=== PATIENT | female | born 1975 | race Caucasian/White ===

== ENCOUNTER 2016-06-03 15:40 | Emergency (ER) | payer SELFPAY ==
[~2016-06-03] VITALS: Ht 162.6 cm; Wt 63.8 kg
[~2016-06-03 15:40] MED LIST: ACET-2222 PO; ACET-789 PO; ACET325T38 PO; ALPR.5T; ALPR.5T PO; CEPH500C PO; CIPR500T78 PO; CLIN300C3 PO; FNT100TD; FNT25TD; GBPN100C PO; HYDR-34 PO; HYDR-3714 PO; HYDR1TAB PO; IBUP-1773 PO; IBUP800T26 PO; KETO-22 PO; LIDO20SO20 PO; LORTAB PO; METO10TA3 PO; METR500T PO; NF-ESOM40C PO; ONDA8TAB13 PO; ONDAN4ODT PO; OXYC-109; OXYC1CAP3 PO; PHEN-639 PO; PHEN100T17 PO; PNT40TEC PO; PREG50C; PRM25T PO; SULF1TAB7 PO; TRAM-21; TRAM50TA2 PO; TRAZADONE PO; TRM50T PO; Ultram; VARE1TAB19; Zantac; [UNRECOGNIZED DRUG - CODE]
--- OUTSIDE RECORDS SUMMARY | 2016-06-03 15:45 | XMS REPORT | Continuity of Care Document ---
Author Author [facility] Organization [facility] Address Unknown Phone Unavailable Care Team Providers Care System Software Developer Name Role Phone NO, LOCAL PHYSICIAN PCP Unavailable Advance Directives Directive Response Recorded Date/Time Advance Directives No 11/28/13 11:05am Health Care Power of District Court Judge No 11/28/13 11:05am Organ Donor Yes 11/28/13 11:05am Resuscitation Status Full Code 11/28/13 11:05am Problems Medical Problems Problem Onset Date Status Nausea and vomiting Unknown Active abdominal pain secondary to number one Unknown Active trichomonas urinary tract infection Unknown Active Urinary tract infection Unknown Active Medications Medication Dose Route Sig Days/Qty Instructions Order Date Discontinued Date Status Fentanyl 08/23/06 01/22/09 Discontinued Alprazolam 08/23/06 01/22/09 Discontinued Hydrocodone Bitartrate/Ibuprofen 08/23/06 01/22/09 Discontinued Pregabalin 01/22/09 03/25/09 Discontinued Tramadol Hcl 01/22/09 03/25/09 Discontinued Varenicline Tartrate 01/22/09 03/25/09 Discontinued Fentanyl 03/25/09 12/12/10 Discontinued Oxycodone Hcl/Acetaminophen 03/25/09 12/12/10 Discontinued Promethazine HCl 1 Tab PO EVERY 6 HOURS 20 Qty 03/25/09 12/12/10 Discontinued Alprazolam 1 Tab PO TWICE A DAY 12/12/10 07/25/11 Discontinued [Trazadone] 100 Mg PO BEDTIME 12/12/10 07/25/11 Discontinued Oxycodone Hcl/Acetaminophen 1 Each PO Q 6 H PRN PAIN 20 Qty 12/12/10 01/19/11 Discontinued Gabapentin 100 Mg PO THREE TIMES A DAY 30 Qty 12/12/10 01/19/11 Discontinued [Zantac] 07/25/11 11/03/11 Discontinued [Ultram] 07/25/11 11/03/11 Discontinued Pantoprazole Sodium 1 Tab PO DAILY 30 Qty 07/25/11 12/21/11 Discontinued Ketorolac Tromethamine 10 Mg PO EVERY 6 HOURS PRN 15 Qty FOR PAIN 12/21/11 Discontinued Tramadol HCl 50 Mg PO Q4-6HOURS PRN 20 Qty 07/25/11 06/01/13 Discontinued Ondansetron HCl 4 Mg PO EVERY 4HRS 10 Qty FOR NAUSEA AND VOMITING 12/21/11 Discontinued [Lortab 5/500] 1 - 2 Tab PO EVERY 4HRS NEEDED FOR PAIN 07/27/11 Discontinued Esomeprazole Magnesium 1 Cap PO DAILY 30 Days 07/27/11 11/03/11 Discontinued Acetaminophen/Hydrocodone Bitart 1 - 2 Each PO Q4HR PRN 10 Qty 12/21/11 Discontinued Acetaminophen With Codeine 1 Each PO EVERY 4HRS PRN 6 Qty 12/21/11 Discontinued Metronidazole 1 Each PO TWICE A DAY 20 Qty 06/01/13 11/28/13 Discontinued Acetaminophen/Hydrocodone Bitart ([place]) 1-2 Each PO EVERY 6 HOURS PRN PAIN 20 Qty 06/01/13 11/28/13 Discontinued Ondansetron 8 Mg PO EVERY 6 HOURS PRN NAUSEA/VOMITING 10 Qty 06/01/13 11/28/13 Discontinued Ibuprofen (Motrin) 800 Mg PO q8h PRN PAIN 30 Qty 06/01/13 11/28/13 Discontinued Trimethoprim/Sulfamethoxazole 1 Ea PO TWICE A DAY 11/28/13 Active Ciprofloxacin HCl 500 Mg PO TWICE A DAY 14 Qty 11/28/13 Active Acetaminophen/Hydrocodone Bitart 1-2 Each PO Q6HR PRN PRN PAIN 14 Qty 11/28/13 Active Phenazopyridine HCl 1 Each PO TID PRN 10 Qty 11/28/13 Active Social History Social History Problem Response Recorded Date/Time Alcohol Use Denies Use 11/28/2013 11:05am Recreational Drug Use No 11/28/2013 11:05am Recent Foreign Travel No 11/28/2013 11:05am Recent Infectious Disease Exposure No 11/28/2013 11:05am Smoking Status Current Everyday Smoker 11/28/2013 11:05am Query Response Start Date Stop Date Smoking Status Current Everyday Smoker Hospital Discharge Instructions No hospital discharge instructions. Plan of Care No plan of care. Functional Status No functional status results. Allergies, Adverse Reactions, Alerts Allergen Type Severity Reaction Status Last Updated Penicillins ([id number]) Allergy Unknown Active 06/15/05 pregabalin ([id number]) Allergy Severe EDEMA Active 12/21/11 Immunizations No immunization records. Vital Signs Acute Vital Signs Vital Response Date/Time Temperature (Fahrenheit) 97.3 degrees F (97.6 - 99.5) Temperature (Calculated Celsius) 36.35752 degrees C (36.4 - 37.5) Pulse Rate (adult) 70 bpm (60 - 90) Respiratory Rate 18 bpm (12 - 24) O2 Sat by Pulse Oximetry 98 % (88 - 100) Blood Pressure 98/50 mm Hg Pain Pain Intensity 3 Height (Feet) 5 feet Height (Inches) 4 inches Height (Calculated Centimeters) 162.276374 cm Weight (Pounds) 120 pounds Weight (Calculated Kilograms) 54.917226 kilograms Calculated BMI 20.60 Results Test Source Date Result Interp. Ref. Range Comments Acetaminophen Level July 27, 2008 11:15pm < 10 UG/ML L 10.0-30.0 Acetaminophen Screen July 25, 2011 5:00pm NEGATIVE - APAP= ACETAMINOPHEN/PARACETAMOL Activated Partial Thromboplast Time June 18, 2005 7:05am 30 SEC N 24- 35 Alanine Aminotransferase (ALT/SGPT) June 01, 2013 6:15pm 54 U/L N 30 -65 Albumin June 01, 2013 6:15pm 4.0 G/DL N 3.4-5.0 Alkaline Phosphatase June 01, 2013 6:15pm 87 U/L N 50-136 Amphetamines Screen June 16, 2005 5:00pm Negative - Has specimen been collected/obtained? Y Amylase Level June 01, 2013 6:15pm 40 U/L N 25-115 Aspartate Amino Transf (AST/SGOT) June 01, 2013 6:15pm 25 U/L N 15- 37 BUN/Creatinine Ratio June 01, 2013 6:15pm 14 - Band Neutrophils July 25, 2011 3:45pm 0 % - Basophils # (Auto) June 01, 2013 6:15pm 0.1 10^3/uL N 0.0-0.1 Basophils % (Manual) July 25, 2011 3:45pm 0 % - Basophils (%) (Auto) June 01, 2013 6:15pm 1 % N 0-10 Blood Urea Nitrogen June 01, 2013 6:15pm 11 MG/DL N 7-18 C-Reactive Protein June 01, 2013 6:15pm < 0.2 MG/DL L 0.2-0.9 Calcium Level June 01, 2013 6:15pm 9.4 MG/DL N 8.5-10.1 Carbon Dioxide Level June 01, 2013 6:15pm 24 MMOL/L N 21-32 Chloride Level June 01, 2013 6:15pm 100 MMOL/L L 101-110 Cocaine Screen June 16, 2005 5:00pm Negative - Has specimen been collected/obtained? Y Creatinine June 01, 2013 6:15pm 0.8 MG/DL N 0.6-1.3 Direct Bilirubin July 02, 2005 9:05am 0.2 MG/DL N 0.0-0.30 Comments to [facility]: [facility] Eosinophils # (Auto) June 01, 2013 6:15pm 0.0 10^3/uL N 0.0-0.3 Eosinophils % (Manual) July 25, 2011 3:45pm 0 % - Eosinophils (%) (Auto) June 01, 2013 6:15pm 0 % N 0-10 Erythrocyte Sedimentation Rate April 20, 2012 10:25pm 1 MM/HR N 0-20 Glucose Level June 01, 2013 6:15pm 128 MG/DL H 74-106 Hematocrit June 01, 2013 6:15pm 43 % N 35-52 Hemoglobin June 01, 2013 6:15pm 15.4 G/DL N 11.5-16.0 Hepatitis A Antibody Total July 01, 2005 11:55am See report - HEPATITIS C GENOTYPE- 3ML PLASMA FROZEN Hepatitis B Surface Antigen June 15, 2005 5:19pm See report - Hepatitis C Antibody June 16, 2005 6:41am See report - Hepatitis C RNA (DNA PCR) July 01, 2005 11:55am See report - HEPATITIS C GENOTYPE- 3ML PLASMA FROZEN Hepatitis C RNA (PCR) IUs/ml July 01, 2005 11:55am See report - HEPATITIS C GENOTYPE- 3ML PLASMA FROZEN Indirect Bilirubin July 02, 2005 9:05am 0.2 MG/DL - Comments to [facility]: [facility] Lipase June 01, 2013 6:15pm 114 U/L N 73-393 Lymphocytes # (Auto) June 01, 2013 6:15pm 3.2 X 10^3 N 1.0-4.0 Lymphocytes % (Manual) July 25, 2011 3:45pm 9 % - Lymphocytes (%) (Auto) June 01, 2013 6:15pm 31 % N 12-44 Magnesium Level April 20, 2012 10:25pm 1.4 MG/DL L 1.8-2.4 Marijuana (THC) Screen June 16, 2005 5:00pm Positive - Has specimen been collected/obtained? Y Mean Corpuscular Hemoglobin June 01, 2013 6:15pm 31 PG N 25-34 Mean Corpuscular Hemoglobin Concent June 01, 2013 6:15pm 36 G/DL N 32-36 Mean Corpuscular Volume June 01, 2013 6:15pm 87 FL N 80-99 Mean Platelet Volume June 01, 2013 6:15pm 9.1 FL N 7.4-10.4 Miscellaneous Test July 01, 2005 11:55am Hep c genotype - HEPATITIS C GENOTYPE- 3ML PLASMA FROZEN Miscellaneous Test Result July 01, 2005 11:55am See report - HEPATITIS C GENOTYPE- 3ML PLASMA FROZEN Monocytes # (Auto) June 01, 2013 6:15pm 0.5 X 10^3 N 0.0-1.0 Monocytes % (Manual) July 25, 2011 3:45pm 0 % - Monocytes (%) (Auto) June 01, 2013 6:15pm 5 % N 0-12 Neutrophils # (Auto) June 01, 2013 6:15pm 6.7 X 10^3 N 1.8-7.8 Neutrophils % (Manual) July 25, 2011 3:45pm 91 % - Neutrophils (%) (Auto) June 01, 2013 6:15pm 64 % N 42-75 Opiates Screen June 16, 2005 5:00pm Positive - Has specimen been collected/obtained? Y Platelet Count June 01, 2013 6:15pm 387 10^3/uL N 130-400 Potassium Level June 01, 2013 6:15pm 3.3 MMOL/L L 3.6-5.0 Prothromb Time International Ratio June 18, 2005 7:05am 1.1 N 0.8-1.4 INTERPRETIVE DATASUGGESTED THERAPEUTIC RANGE FOR INR'S: VENOUS THROMBOSIS, PULMONARY EMBOLISM, OR PREVENTION OF SYSTEMIC EMBOLISM (EG. IN ATRIAL FIBRILLATION): 2.0 - 3.0 MECHANICAL PROSTHETIC HEART VALVES: 2.5 - 3.5* *NOTE: INR'S UP TO 4.5 MAY BE NECESSARY IN SELECTED GROUPS OF HIGH RISK PATIENTS. [employer] CONSENSUS CONFERENCE ON ANTITHROMBOTIC THERAPY (2000). Prothrombin Time June 18, 2005 7:05am 14.6 SEC N 12.2-14.7 Red Blood Count June 01, 2013 6:15pm 4.98 10^6/uL N 4.35-5.85 Red Cell Distribution Width June 01, 2013 6:15pm 12.5 % N 10.0-14.5 Reference Lab Test Result July 01, 2005 11:55am See report - HEPATITIS C GENOTYPE- 3ML PLASMA FROZEN Salicylates Level July 27, 2008 11:15pm 4.2 MG/DL N 2.8-20.0 Serum Test, Qualitative July 27, 2008 11:15pm NEGATIVE - Sodium Level June 01, 2013 6:15pm 134 MMOL/L L 135-145 TSH [place] Testing April 20, 2012 10:25pm 0.56 UIU/ML N 0.34-5.60 Total Bilirubin June 01, 2013 6:15pm 0.8 MG/DL N 0.0-1.0 Total Creatine Kinase April 20, 2012 10:25pm 64 U/L N 1-159 Total Protein June 01, 2013 6:15pm 7.1 G/DL N 6.4-8.2 Tricyclic Antidepressants Screen June 16, 2005 5:00pm Negative - Has specimen been collected/obtained? Y Troponin I July 25, 2011 6:00pm < 0.10 NG/ML 0.00-0.10 Ur Tricyclic Antidepressants Screen April 20, 2012 11:05pm NEGATIVE - Urine Amorphous Sediment April 20, 2012 11:05pm MOD CYNTHIA PHOSPHATE /LPF H - Has specimen been collected/obtained? YSpecimen Description CLEAN CATCH Urine Amphetamines Screen April 20, 2012 11:05pm POSITIVE H - Urine Bacteria November 28, 2013 10:30am FEW /HPF H - Has specimen been collected/obtained? YSpecimen Description CLEAN CATCH Urine Barbiturates Screen April 20, 2012 11:05pm NEGATIVE - Urine Benzodiazepines Screen April 20, 2012 11:05pm POSITIVE H - Urine Bilirubin November 28, 2013 10:30am NEGATIVE - Has specimen been collected/obtained? YSpecimen Description CLEAN CATCH Urine Casts November 28, 2013 10:30am NONE /LPF - Has specimen been collected/obtained? YSpecimen Description CLEAN CATCH Urine Clarity November 28, 2013 10:30am SLIGHTLY CLOUDY - Has specimen been collected/obtained? YSpecimen Description CLEAN CATCH Urine Cocaine Screen April 20, 2012 11:05pm NEGATIVE - Urine Color November 28, 2013 10:30am YELLOW - Has specimen been collected/obtained? YSpecimen Description CLEAN CATCH Urine Crystals November 28, 2013 10:30am NONE /LPF - Has specimen been collected/obtained? YSpecimen Description CLEAN CATCH Urine Culture Indicated November 28, 2013 10:30am YES - Has specimen been collected/obtained? YSpecimen Description CLEAN CATCH Urine Glucose (UA) November 28, 2013 10:30am NEGATIVE - Has specimen been collected/obtained? YSpecimen Description CLEAN CATCH Urine HCG, Qualitative January 10, 2007 2:29am Negative - Has specimen been collected/obtained? Y Urine Ketones November 28, 2013 10:30am 1+ H - Has specimen been collected/obtained? YSpecimen Description CLEAN CATCH Urine Leukocyte Esterase November 28, 2013 10:30am 3+ H - Has specimen been collected/obtained? YSpecimen Description CLEAN CATCH Urine Methamphetamines Screen April 20, 2012 11:05pm POSITIVE H - Urine Mucus November 28, 2013 10:30am MODERATE /LPF H - Has specimen been collected/obtained? YSpecimen Description CLEAN CATCH Urine Nitrate January 10, 2007 3:30am Negative - Specimen Description CLEAN CATCH Urine Nitrite November 28, 2013 10:30am NEGATIVE - Has specimen been collected/obtained? YSpecimen Description CLEAN CATCH Urine Opiates Screen April 20, 2012 11:05pm POSITIVE H - Urine Phencyclidine Screen April 20, 2012 11:05pm NEGATIVE - Urine Test July 26, 2011 9:06am NEGATIVE - Urine Propoxyphene Screen April 20, 2012 11:05pm NEGATIVE - Urine Protein November 28, 2013 10:30am 2+ H - Has specimen been collected/obtained? YSpecimen Description CLEAN CATCH Urine RBC November 28, 2013 10:30am 10-25 /HPF H - Has specimen been collected/obtained? YSpecimen Description CLEAN CATCH Urine Specific [place] November 28, 2013 10:30am 1.025 H - Has specimen been collected/obtained? YSpecimen Description CLEAN CATCH Urine Squamous Epithelial Cells November 28, 2013 10:30am 5-10 /HPF - Has specimen been collected/obtained? YSpecimen Description CLEAN CATCH Urine Trichomonas June 01, 2013 6:20pm LARGE /HPF H - Has specimen been collected/obtained? YSpecimen Description CLEAN CATCH Urine Urobilinogen November 28, 2013 10:30am 8 MG/DL H - Has specimen been collected/obtained? YSpecimen Description CLEAN CATCH Urine WBC November 28, 2013 10:30am >100 /HPF H - Has specimen been collected/obtained? YSpecimen Description CLEAN CATCH Urine pH November 28, 2013 10:30am 6 - Has specimen been collected/ obtained? YSpecimen Description CLEAN CATCH White Blood Count June 01, 2013 6:15pm 10.5 10^3/uL N 4.3-11.0 Barbiturate Screen June 16, 2005 5:00pm Negative - Has specimen been collected/obtained? Y Serum Alcohol April 20, 2012 10:25pm < 5 MG/DL -5 Lab Scanned Report July 21, 2011 5:20pm LAB Reports [id number] - Estimat Glomerular Filtration Rate June 01, 2013 6:15pm > 60 - GFR INTERPRETIVE DATA UNITS FOR ESTIMATED GFR (eGFR): mL/min/1.73 M2 REFERENCE RANGE FOR ESTIMATED GFR (eGFR) eGFR NORMAL eGFR >60 MODERATELY DECREASED eGFR 30-59 SEVERLY DECREASED eGFR 15-29 KIDNEY FAILURE <15 (OR DIALYSIS) Urine Oxycodone Screen April 20, 2012 11:05pm NEGATIVE - Blood Morphology Comment July 25, 2011 3:45pm NORMAL - Urine Methadone Screen April 20, 2012 11:05pm NEGATIVE - Urine Cannabinoids Screen April 20, 2012 11:05pm NEGATIVE - Urine Buprenorphine April 20, 2012 11:05pm NEGATIVE - Urine RBC (Auto) November 28, 2013 10:30am 4+ H - Has specimen been collected/obtained? YSpecimen Description CLEAN CATCH Blood Culture Peripheral-Lt Ac August 23, 2006 8:55pm No growth MRSA Screen Nasal July 26, 2011 8:45am MRSA not isolated Urine Culture Urine-Clean Catch June 01, 2013 6:20pm Procedures No known history of procedures. Encounters Encounter Location Date/Time Departed Emergency Room [facility] 11/28/13 10:27am Recent Diagnosis
--- NOTE | 2016-06-03 16:06 | ED Integumentary General ---
General Chief Complaint: Skin/Wound Problems Stated Complaint: L SIDE BUTTOCK ABSCESS Source: patient Exam Limitations: no limitations History of Present Illness Time seen by provider: 16:06 Initial Comments To ER with a tender abscess to the left buttocks since yesterday. States she does not have a history of this. No fevers chills malaise or nausea Timing/Duration: yesterday Severity: moderate Associated Symptoms: No fever Allergies and Home Medications Allergies Coded Allergies: pregabalin (Verified Allergy, Severe, EDEMA, 12/21/11) Penicillins (Verified Allergy, Unknown, 06/15/05) Home Medications Acetaminophen 325 Mg Tablet 500 MG PO NEEDED (Reported) Cephalexin 500 Mg Capsule #21 500 MG PO TID Prescribed by: TODD DAILY on 12/21/15 1228 Ibuprofen 600 Mg Tablet 600 MG PO Q6H (Reported) Lidocaine Hcl 20 Ml Soln #1 20 ML PO UD Prescribed by: SUZANNE TRAN on 07/21/14 0736 Phenazopyridine HCl 100 Mg Tablet #14 100 MG PO Q8H PRN PRN PAIN Prescribed by: TODD DAILY on 12/21/15 1228 Tramadol HCl 50 Mg Tablet #14 50 MG PO Q4H PRN PRN PAIN Prescribed by: TODD DAILY on 12/21/15 1228 Constitutional: see HPINo chills, No fever EENTM: see HPI Respiratory: no symptoms reported Cardiovascular: no symptoms reported Genitourinary: no symptoms reported Musculoskeletal: no symptoms reported Skin: see HPI Psychiatric/Neurological: No Symptoms Reported Past [id number]-Vuxhue Hx Patient Social History Recent Foreign Travel: No Contact w/Someone Who Travel: No Recent Hopitalizations: Yes (BACK PAIN) Seasonal Allergies Seasonal Allergies: No Surgeries HX Surgeries: No Surgeries: Tubal Ligation Respiratory Hx Respiratory Disorders: No Cardiovascular Hx Cardiac Disorders: No Neurological Hx Neurological Disorders: No Reproductive System Hx Reproductive Disorders: No 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 Genitourinary Hx Genitourinary Disorders: Yes Genitourinary Disorders: Bladder Infection Gastrointestinal Hx Gastrointestinal Disorders: Yes (HEP C) Gastrointestinal Disorders: Hepatitis Musculoskeletal Hx Musculoskeletal Disorders: No Endocrine Hx Endocrine Disorders: No HEENT HX ENT Disorders: No Psychosocial Hx Psychiatric Problems: No Integumentary HX Skin/Integumentary Disorder: No Blood Transfusions Hx Blood Disorders: No Family Medical History Significant Family History: No Pertinent Family Hx Physical Exam Vital Signs Vital Sign - Last 12Hours 06/03/16 16:05 Temp 98.1 Pulse 95 Resp 16 B/P 138/76 Pulse Ox 99 Capillary Refill : General Appearance: WD/WN no apparent distress HEENT: PERRL/EOMI normal ENT inspection Neck: full range of motion Neurologic/Psychiatric: alert normal mood/affect oriented x 3 Skin: normal color warm/dry Skin Problem Location: other (there is a visible area of erythema about 1 cm in diameter to the superior left buttocks. Surrounding this there is another 1- 2 cm of induration with minimal fluctuance. Exam and I and D done with RICARDO Mena at the bedside as well as patient's daughter.) Skin Problem Character: abscess I&D : Blade Size: 11 Progress Area anesthetized with 1 percent lidocaine with epinephrine after cleaning with chlorhexidine swab. A T-shaped incision was made over the area of maximum fluctuance using an 11 blade scalpel. Purulent material was expressed. Culture collected and sent to lab. Wound was covered with gauze. Wound was probed with the blunt end of a sterile Q-tip. Not deep enough to pack. Progress/Results/Core Measures Results/Orders My Orders Orders-TOREY DEL VALLE APRN Lidocaine/Epi 1% 1:100,000 (Xylocaine /E (06/03/16 16:15) Sulfamethoxazole/Trimet Ds Tab (Bactrim (06/03/16 16:15) Wound Culture (06/03/16 16:15) Medications Given in ED Current Medications Medications Dose Ordered Sig/Dick Route Start Time Stop Time Status Last Admin Dose Admin Lidocaine/ Epinephrine 2 ml ONCE ONCE INJ 06/03/16 16:15 06/03/16 16:16 06/03/16 16:10 2 ML Trimethoprim/ Sulfamethoxazole 1 ea ONCE ONCE PO 06/03/16 16:15 06/03/16 16:16 06/03/16 16:11 1 EA Vital Signs/I&O Vital Sign - Last 12Hours 06/03/16 16:05 Temp 98.1 Pulse 95 Resp 16 B/P 138/76 Pulse Ox 99 Departure Impression Impression: Primary Impression: Abscess Disposition: 01 HOME, SELF-CARE Condition: Stable Departure-Patient Inst. Decision time for Depature: 16:18 Referrals: NO,LOCAL PHYSICIAN (PCP/Family) Primary Care Physician Patient Instructions: Abscess Incision and Drainage (DC) Add. Discharge Instructions: 1. Return to ER for any concerns 2. Warm compresses to this area a few times a day 3. Antibiotics as directed 4. Tylenol and Motrin for pain All discharge instructions reviewed with patient and/or family. Voiced understanding. Scripts Tramadol HCl (Ultram)50 Mg [id number] Mg PO Q6H PRN PAIN #10 TAB Prov:TOREY DEL VALLE APRN 06/03/16 Sulfamethoxazole/Trimethoprim (Bactrim Ds Tablet)1 Each Tablet1 Each PO BID #14 TAB Prov:TOREY DEL VALLE APRN 06/03/16 TOREY DEL VALLE APRN Jun 03, 2016 16:06
[2016-06-03] MEDS ORDERED: LIDOCAINE/EPI 1%-1:100,000 (XYLOCAINE) 20ML INJ ONE (16:15)
[2016-06-03] MEDS ORDERED: TRIM/SULFAMETH 160/800 (SEPTRA DS) TAB PO ONE (16:15)
[2016-06-03] MEDS ORDERED: SULF1TAB35 PO (16:18)
[2016-06-03] MEDS ORDERED: TRAM-42 PO (16:19)
[2016-06-03 16:20] VITALS: BP 138/76
== END 2016-06-03 16:20 | disposition home or self-care (01) ==
LOC: EDUNIT# 15:40 → ER 15:41
DX: L02.31 Cutaneous abscess of buttock (principal)
CPT/HCPCS: 10060; 87070; 87077; 87186; 87205

== ENCOUNTER 2016-10-23 05:35 | Emergency (ER) | payer SELFPAY ==
[~2016-10-23] VITALS: Ht 162.6 cm; Wt 52.5 kg
[~2016-10-23 05:35] MED LIST changes: +SULF1TAB35 PO; +TRAM-42 PO
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
[2016-10-23] MEDS ORDERED: KETOROLAC 60 MG/2 ML VIAL IM STA (05:51)
[2016-10-23] MEDS ORDERED: ORPHENADRINE 60 MG/2 ML (NORFLEX) AMP IM STA (05:51)
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
--- NOTE | 2016-10-23 07:26 | Diagnostic Imaging Report ---
PROCEDURE: CT lumbar spine without contrast. TECHNIQUE: Multiple contiguous axial images were obtained through the lumbar spine without the use of intravenous contrast. Sagittal and coronal reformations were then performed. INDICATION: Fall. Back pain. COMPARISON: 01/19/2011 FINDINGS: There are acute nondisplaced fractures of the right transverse processes of L1-L2. No other acute appearing osseous abnormalities are identified. Vertebral body heights are maintained. No compression fractures are seen. Static alignment is preserved. There is no significant anterolisthesis or retrolisthesis. There is no evidence of jumped facets. No significant degenerative changes are identified. Pre-and paravertebral soft tissue structures are unremarkable. IMPRESSION: 1. Acute nondisplaced fractures of the right transverse processes of L1 and L2. Dictated by: Dictated on workstation # [id number]
[2016-10-23] MEDS ORDERED: Flexeril (07:40)
[2016-10-23] MEDS ORDERED: HYDR-756 PO (07:40)
[2016-10-23 07:53] VITALS: BP 104/76
== END 2016-10-23 07:53 | disposition home or self-care (01) ==
LOC: EDUNIT# 05:35 → ER 05:38
DX: S32.018A Other fracture of first lumbar vertebra, initial encounter for closed fracture (principal); S32.028A Other fracture of second lumbar vertebra, initial encounter for closed fracture; F17.210 Nicotine dependence, cigarettes, uncomplicated; W01.10XA Fall on same level from slipping, tripping and stumbling with subsequent striking against unspecified object, initial encounter; Y99.8 Other external cause status
CPT/HCPCS: 72131; 96372; 99284

== ENCOUNTER 2018-04-29 01:58 | Emergency (ER) | payer SELFPAY ==
[~2018-04-29] VITALS: Ht 162.6 cm; Wt 56.7 kg
[~2018-04-29 01:58] MED LIST changes: +Flexeril; +HYDR-4227 PO
[2018-04-29] MEDS ORDERED: RX-TRAMADOL 50 MG (ULTRAM) TAB PPK#4 PO STA (02:18)
[2018-04-29] MEDS ORDERED: AMOXICILLIN 500 MG (POLYMOX) CAP PO ONE (02:30)
[2018-04-29] MEDS ORDERED: LIDOCAINE 2% VISCOUS 15 ML UDC PO ONE (02:30)
[2018-04-29] MEDS ORDERED: AMOX500T2 PO (02:49)
[2018-04-29] MEDS ORDERED: TRAM-42 PO (02:49)
--- NOTE | 2018-04-29 02:49 | ED EENT ---
History of Present Illness General Chief Complaint: Dental Problems/Pain Stated Complaint: DENTAL PAIN Nursing Triage Note: DENTAL PAIN Source: patient Exam Limitations: no limitations History of Present Illness Date Seen by Provider: Apr 29, 2018 Time Seen by Provider: 02:10 Initial Comments This 42-year-old woman presents to the emergency room with complaints of bilateral dental pain due to multiple severely eroded molars. She has a dental appointment pending for May 18. She denies any fevers. She is taking Tylenol and Advil with insufficient relief. She is also taking topical anesthetics states they upset her stomach. Allergies and Home Medications Allergies Coded Allergies: pregabalin (Verified Allergy, Severe, EDEMA, 12/21/11) Penicillins (Verified Allergy, Unknown, 04/29/18) Can take amoxicillin without reaction Home Medications Amoxicillin 500 Mg Tablet, 1,000 MG PO BID Prescribed by: MARISOL COHN on 04/29/18 0249 Tramadol HCl 50 Mg Tablet, 50 MG PO Q6H PRN for PAIN-MODERATE TO SEVERE Prescribed by: MARISOL COHN on 04/29/18 0249 Patient Home Medication List Home Medication List Reviewed: Yes Review of Systems Review of Systems Constitutional: no symptoms reported Eyes: No Symptoms Reported Ears: No Symptoms Reported Nose: no symptoms reported Mouth: see HPI Throat: no symptoms reported Respiratory: no symptoms reported Cardiovascular: no symptoms reported Gastrointestinal: no symptoms reported : No Musculoskeletal: no symptoms reported Skin: no symptoms reported Neurological: No Symptoms Reported Hematologic/Lymphatic: No Symptoms Reported Immunological/Allergic: no symptoms reported Past Zrmpszv-Eggrkn-Xlvagk Hx Past Med/Social Hx: Reviewed and Corrections made Patient Social History Alcohol Use: Denies Use Recreational Drug Use: No Smoking Status: Current Everyday Smoker Type Used: Cigarettes 2nd Hand Smoke Exposure: No Recent Foreign Travel: No Contact w/Someone Who Travel: No Recent Infectious Disease Expo: No Recent Hopitalizations: No Immunizations Up To Date Tetanus Booster (TDap): Unknown Seasonal Allergies Seasonal Allergies: No Past Medical History Surgeries: Yes Section, Tubal Ligation Respiratory: No Cardiac: No Neurological: No : No Reproductive Disorders: No 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 0oz. 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 Patient was warned not to fall sleep with gauze pads in her mouth. A take-home packet of Ultram was provided. Her first dose of amoxicillin was given. Patient stated she has a historical penicillin allergy but she knows from experience she can take amoxicillin without reaction. Departure Impression Primary Impression: Pain, dental Additional Impression: Dental decay Disposition: 01 HOME, SELF-CARE Condition: Improved Departure-Patient Inst. Decision time for Depature: 02:44 Referrals: NO,LOCAL PHYSICIAN (PCP/Family) Primary Care Physician Patient Instructions: Dental Pain (DC) Add. Discharge Instructions: Follow-up with your dentist as soon as possible for extractions. Complete your antibiotics as prescribed. You may use anesthetic gauze pads to blanket the areas of pain. Do NOT fall sleep with gauze pads in your mouth as that would create choking risk. Eat and drink with caution after using gauze pads as they may numb your mouth, tongue, and throat. For primary pain control you may use ibuprofen up to 600 mg every 6 hours as needed and/or Tylenol (acetaminophen) up to 1000 mg every 6 hours. Use Ultram ( tramadol) for pain not controlled by [id number] medications. Return to care if you worsening symptoms despite these measures. All discharge instructions reviewed with patient and/or family. Voiced understanding. Scripts Tramadol HCl (Ultram) 50 Mg Tablet 50 MG PO Q6H PRN for PAIN-MODERATE TO SEVERE, #20 TAB Prov: MARISOL PULIDO MD 04/29/18 Amoxicillin (Amoxicillin) 500 Mg Tablet 1000 MG PO BID, #40 TAB Prov: MARISOL PULIDO MD 04/29/18 MARISOL PULIDO MD Apr 29, 2018 02:48
[2018-04-29 02:55] VITALS: BP 122/91
== END 2018-04-29 02:53 | disposition home or self-care (01) ==
LOC: EDUNIT# 01:58 → ER 02:02
DX: K02.9 Dental caries, unspecified (principal); B19.20 Unspecified viral hepatitis C without hepatic coma; F17.210 Nicotine dependence, cigarettes, uncomplicated; Z98.890 Other specified postprocedural states; Z87.19 Personal history of other diseases of the digestive system; Z98.51 Tubal ligation status; Z87.448 Personal history of other diseases of urinary system; Z88.0 Allergy status to penicillin; Z88.8 Allergy status to other drugs, medicaments and biological substances
CPT/HCPCS: 99283

== ENCOUNTER 2018-10-27 23:58 | Emergency (ER) | payer SELFPAY, OTHER | END 2018-10-28 01:03 | disposition home or self-care (01) | LOC: ER 23:58 ==

== ENCOUNTER 2019-07-14 12:31 | Emergency (ER) | payer SELFPAY ==
[~2019-07-14] VITALS: Ht 162.6 cm; Wt 56.0 kg
[~2019-07-14 12:31] MED LIST changes: +AMOX500T2 PO; +METH4TAB PO; -TRAM50TA2 PO
[2019-07-14 12:35] VITALS: BP 117/85
[2019-07-14] MEDS ORDERED: HYDROcodone/APAP 5 MG/325 MG (LORTAB) TAB PO ONE (13:15)
[2019-07-14] MEDS ORDERED: predniSONE 20 MG TAB PO ONE (13:15)
--- NOTE | 2019-07-14 13:31 | ED Upper Extremity ---
General Chief Complaint: Orthopedic Problems Stated Complaint: SHOULDER PAIN Nursing Triage Note: Pt amb to triage with c/o L shoulder et R foot discomfort. Pt reports she took 1000mg tylenol on this day at 0500. Pt denies injury reporting hx degenerative disk disease. Nursing Sepsis Screen: No Definite Risk Source: patient Exam Limitations: no limitations History of Present Illness Date Seen by Provider: Jul 14, 2019 Time Seen by Provider: 13:00 Initial Comments 44-year-old female who presents to the emergency room with complaints of left shoulder pain. She has chronic degenerative disc disease and it affects her left shoulder from time to time she also complains of right foot discomfort that starts in the arch of her foot. She denies any injury to the foot. Denies taking any pain medication for this. She reports that she's delt with this and she was 14 years old. Pain/Injury Location: left shoulder Allergies and Home Medications Allergies Coded Allergies: pregabalin (Verified Allergy, Severe, EDEMA, 12/21/11) Penicillins (Verified Allergy, Unknown, 04/29/18) Can take amoxicillin without reaction Home Medications Amoxicillin 500 Mg Tablet, 1,000 MG PO BID Prescribed by: MARISOL COHN on 04/29/18 0249 Methylprednisolone 4 Mg Tab.ds.pk, 4 MG PO UD Prescribed by: NATASHA WEEMS on 10/28/18 0044 Prednisone 50 Mg Tab, 50 MG PO DAILY Prescribed by: PAULINA MORRISSEY on 07/14/19 1355 Tramadol HCl 50 Mg Tablet, 50 MG PO Q6H PRN for PAIN-MODERATE TO SEVERE Prescribed by: MARISOL COHN on 04/29/18 0249 Patient Home Medication List Home Medication List Reviewed: Yes Review of Systems Constitutional: see HPI; No chills, No fever Past Winznxm-Dkyrwi-Wttydv Hx Patient Social History Alcohol Use: Denies Use Recreational Drug Use: No (smoke) 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; OPIATES, BENZODIAZEPINES, THC Smoking Status: Current Everyday Smoker Type Used: Cigarettes 2nd Hand Smoke Exposure: No Recent Foreign Travel: No Contact w/Someone Who Travel: No Recent Infectious Disease Expo: No Recent Hopitalizations: No Immunizations Up To Date Tetanus Booster (TDap): Less than 5yrs PED Vaccines UTD: Yes Seasonal Allergies Seasonal Allergies: No Past Medical History Surgeries: Yes ( X 1) Section, Gallbladder, Tubal Ligation Respiratory: No Cardiac: No Neurological: No Reproductive Disorders: No 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 PT WITH HX OF POLYSUBSTANCE ABUSE, INCLUDING IV METH, WELL RX DRUG ABUSE--OPIATES AND BENZODIAZEPINES Physical Exam Vital Signs Vital Signs - First Documented 07/14/19 12:35 Temp 37.0 Pulse 96 Resp 17 B/P (MAP) 117/85 (96) Pulse Ox 99 O2 Delivery Room Air Capillary Refill : Less Than 3 Seconds Height, Weight, BMI Height: 5'4" Weight: 125lbs. 0oz. [id number]; 21.00 BMI Method:Stated General Appearance: WD/WN, no apparent distress Cardiovascular: normal peripheral pulses, regular rate, rhythm, no edema, no gallop, no JVD, no murmur Respiratory: chest non-tender, lungs clear, normal breath sounds, no respi ratory distress, no accessory muscle use Gastrointestinal: normal bowel sounds, non tender, soft, no organomegaly, no pulsatile mass, abnormal bowel sounds Shoulder: normal inspection, non-tender, no evidence of injury, normal ROM Neurologic/Psychiatric: alert, normal mood/affect, oriented x 3 Skin: normal color, warm/dry Progress/Results/Core Measures Results/Orders My Orders Orders - PAULINA MORRISSEY Hydrocodone/Apap 5/325 Tablet (Lortab 5 (07/14/19 13:15) Prednisone Tablet (Deltasone Tablet) (07/14/19 13:15) Shoulder, Left, 3 Views (07/14/19 13:06) Medications Given in ED Current Medications Medications Dose Ordered Sig/Dick Route Start Time Stop Time Status Last Admin Dose Admin Acetaminophen/ Hydrocodone Bitart 1 tab ONCE ONCE PO 07/14/19 13:15 07/14/19 13:16 DC 07/14/19 13:13 1 TAB Prednisone 50 mg ONCE ONCE PO 07/14/19 13:15 07/14/19 13:16 DC 07/14/19 13:13 50 MG Vital Signs/I&O 07/14/19 12:35 Temp 37.0 Pulse 96 Resp 17 B/P (MAP) 117/85 (96) Pulse Ox 99 O2 Delivery Room Air Blood Pressure Mean: 96 Departure Impression Primary Impression: Chronic shoulder pain Additional Impression: Plantar fasciitis Disposition: HOME, SELF-CARE Condition: Stable/Unchanged Departure-Patient Inst. Decision time for Depature: 13:53 Referrals: NO,LOCAL PHYSICIAN (PCP/Family) Primary Care Physician Patient Instructions: Chronic Pain (DC), Heel Pain (Caused by Plantar Fasciitis) (DC), Plantar Fasciitis Exercises Add. Discharge Instructions: Take medication as directed. You may use ice and heat to the sore areas. Tylenol and ibuprofen as directed by the packaging for pain relief. Call today to a primary care provider. Return back to the emergency room for worsening symptoms or concerns as needed. All discharge instructions reviewed with patient and/or family. Voiced understanding. Scripts Prednisone (Prednisone) 50 Mg Tab 50 MG PO DAILY for 5 Days, #5 TAB Prov: PAULINA MORRISSEY 07/14/19 PAULINA MORRISSEY Jul 14, 2019 13:30
--- NOTE | 2019-07-14 13:45 | Diagnostic Imaging Report ---
INDICATION: Shoulder pain COMPARISON: None. FINDINGS: 3 views of the left shoulder were obtained. There is no fracture, dislocation, or other acute bony abnormality identified. The soft tissues appear unremarkable. No radiopaque foreign bodies identified. The visualized portions of the left lung are clear. IMPRESSION: No acute fractures or dislocations of the left shoulder. Dictated by: Dictated on workstation # [id number]
[2019-07-14] MEDS ORDERED: PRD50T PO (13:55)
== END 2019-07-14 13:50 | disposition home or self-care (01) ==
LOC: EDUNIT# 12:31 → ER 12:33
DX: M25.512 Pain in left shoulder (principal); M72.2 Plantar fascial fibromatosis; F17.210 Nicotine dependence, cigarettes, uncomplicated
CPT/HCPCS: 73030; 99282

== ENCOUNTER 2020-01-04 10:40 | Emergency (ER) | payer SELFPAY ==
[~2020-01-04] VITALS: Ht 162.6 cm; Wt 58.9 kg
[~2020-01-04 10:40] MED LIST changes: +PRD50T PO
[2020-01-04 11:22] LABS: BASOPHILS # (AUTO) 0.1 10^3/uL (0.0-0.1); BASOPHILS % (AUTO) 1 % (0-10); EOSINOPHILS % (AUTO) 0 % (0-10); HEMATOCRIT 45 % (35-52); HEMOGLOBIN 15.1 g/dL (11.5-16.0); LYMPHOCYTES # (AUTO) 2.5 10^3/uL (1.0-4.0); LYMPHOCYTES % (AUTO) 25 % (12-44); MEAN CORPUSCULAR HEMOGLOBIN 31 pg (25-34); MEAN CORPUSCULAR HGB CONC 34 g/dL (32-36); MEAN CORPUSCULAR VOLUME 90 fL (80-99); MEAN PLATELET VOLUME 8.6 fL (9.0-12.2); MONOCYTES # (AUTO) 0.3 10^3/uL (0.0-1.0); MONOCYTES % (AUTO) 3 % (0-12); NEUTROPHILS # (AUTO) 7.2 10^3/uL (1.8-7.8); NEUTROPHILS % (AUTO) 72 % (42-75); PLATELET COUNT 432 10^3/uL (130-400); WHITE BLOOD COUNT 10.1 10^3/uL (4.3-11.0)
[2020-01-04 11:26] LABS: CLARITY,URINE CLEAR; COLOR,URINE YELLOW; GLUCOSE, URINE (UA) NEGATIVE (NEGATIVE); KETONES,URINE 3+ (NEGATIVE); LEUKOCYTE ESTERASE ,URINE NEGATIVE (NEGATIVE); NITRITE,URINE NEGATIVE (NEGATIVE); PH,URINE 7.5 (5-9); PROTEIN,URINE 1+ (NEGATIVE)
[2020-01-04] MEDS ORDERED: NS IV 1000 ML 1,000 ML IV SCH ×2 (11:29→12:10)
[2020-01-04] MEDS ORDERED: fentaNYL INJECTION 100 MCG/2 ML AMP IVP ONE ×2 (11:30→14:30)
[2020-01-04] MEDS ORDERED: ONDANSETRON 4 MG/2 ML (SDV) Z0FRAN IVP ONE (11:30)
[2020-01-04 11:32] LABS: ALBUMIN 4.7 GM/DL (3.2-4.5); CHLORIDE 103 MMOL/L (98-107); POTASSIUM 3.6 MMOL/L (3.6-5.0); SODIUM 139 MMOL/L (135-145)
[2020-01-04 11:34] LABS: GLUCOSE 105 MG/DL (70-105)
[2020-01-04 11:35] LABS: TOTAL PROTEIN 7.7 GM/DL (6.4-8.2)
[2020-01-04 11:36] LABS: BILIRUBIN,TOTAL 1.4 MG/DL (0.1-1.0); CARBON DIOXIDE 19 MMOL/L (21-32)
[2020-01-04 11:38] LABS: ALKALINE PHOSPHATASE 82 U/L (40-136); CREATININE SERUM 0.72 MG/DL (0.60-1.30); GFR ESTIMATED > 60
[2020-01-04 11:38] LABS: BACTERIA,URINE FEW /HPF; RBC,URINE RARE /HPF; SQUAMOUS EPITHELIAL CELL,UR 25-50 /HPF; WBC,URINE 0-2 /HPF
[2020-01-04 11:39] LABS: BUN/CREATININE RATIO 21
[2020-01-04 11:41] LABS: ALANINE AMINOTRANSFERASE 48 U/L (0-55)
[2020-01-04 11:42] LABS: AMPHETAMINE SCREEN, URINE POSITIVE (NEGATIVE); BARBITURATE SCREEN URINE NEGATIVE (NEGATIVE); BENZODIAZEPINES SCREEN URINE POSITIVE (NEGATIVE); BILIRUBIN,URINE 2+ (NEGATIVE); CANNABINOID SCREEN, URINE POSITIVE (NEGATIVE); COCAINE SCREEN URINE NEGATIVE (NEGATIVE); METHADONE STAT NEGATIVE (NEGATIVE); METHAMPHETAMINE SCREEN URINE S POSITIVE (NEGATIVE); OPIATE SCREEN URINE POSITIVE (NEGATIVE); OXYCODONE STAT NEGATIVE (NEGATIVE); PROPOXYPHENE STAT NEGATIVE (NEGATIVE); TRICYCLIC ANTIDEPRESSANTS SCRE NEGATIVE (NEGATIVE)
[2020-01-04 11:45] LABS: AMYLASE 50 U/L (25-125)
--- NOTE | 2020-01-04 11:47 | ED GI ---
General Chief Complaint: Abdominal/GI Problems Stated Complaint: ABD PAIN;VOMITING Nursing Triage Note: PT TO ROOM 07 VIA W/C WITH C/O ABD PAIN, N/V/D THIS THIS MORNING. PT REPORTS TAKING A 10/325 HYDROCODONE FOR THE PAIN AT 0700 WITHOUT RELIEF. PT TEARFUL UPON ARRIVAL AND RAISED THE SIDE RAILS X2 ON THE BED ON HER OWN. Sepsis Screen: No Definite Risk History of Present Illness Date Seen by Provider: Jan 04, 2020 Time Seen by Provider: 11:10 Initial Comments 44 year old female presents with epigastric abdominal that started at 0700, multiple episodes of vomiting and a few episodes of diarrhea. Reports using marijuana most days, denies any other drug use. The hydrocodone at 0700 with no improvement in her symptoms. She does report a history of using Xanax but denies using it over the last 90 days. She goes to [facility] and is prescribed Prozac there. She does not have a primary care provider. History of cholecystectomy and tubal ligation, no other abdominal surgeries. Timing/Duration: 4-6 Hours Severity/Quality: Moderate Location: Epigastric Radiation: No Radiation Associated Symptoms: No Back Pain, No Chest Pain, No Fever/Chills, No Heartburn; Nausea/Vomiting; No Swelling/Mass in Abdomen Allergies and Home Medications Allergies Coded Allergies: pregabalin (Verified Allergy, Severe, EDEMA, 12/21/11) Penicillins (Verified Allergy, Unknown, 04/29/18) Can take amoxicillin without reaction Home Medications Amoxicillin 500 Mg Tablet, 1,000 MG PO BID Prescribed by: MARISOL COHN on 04/29/18 0249 Cephalexin 500 Mg Tablet, 500 MG PO TID Prescribed by: RUBY SILVA on 01/04/20 1228 Methylprednisolone 4 Mg Tab.ds.pk, 4 MG PO UD Prescribed by: NATASHA WEEMS on 10/28/18 0044 Ondansetron 4 Mg Tab.rapdis, 4 MG PO Q6H PRN for NAUSEA/VOMITING Prescribed by: RUBY SILVA on 01/04/20 1228 Prednisone 50 Mg Tab, 50 MG PO DAILY Prescribed by: PAULINA MORRISSEY on 07/14/19 1355 Tramadol HCl 50 Mg Tablet, 50 MG PO Q6H PRN for PAIN-MODERATE TO SEVERE Prescribed by: MARISOL COHN on 04/29/18 0249 Patient Home Medication List Home Medication List Reviewed: Yes Review of Systems Review of Systems Constitutional: no symptoms reported, see HPI Gastrointestinal: See HPI, Abdominal Pain (epigastric), Diarrhea, Nausea, Poor Appetite, Vomiting All Other Systems Reviewed Negative Unless Noted: Yes Past Svpdfqd-Xnyath-Jqnkzm Hx Past Med/Social Hx: Reviewed Nursing Past Med/Soc Hx Patient Social History Alcohol Use: Denies Use Recreational Drug Use: Yes (smoke) 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; OPIATES, BENZODIAZEPINES, THC Smoking Status: Current Everyday Smoker Type Used: Cigarettes 2nd Hand Smoke Exposure: No Recent Foreign Travel: No Contact w/Someone Who Travel: No Recent Infectious Disease Expo: No Recent Hopitalizations: No Physical Abuse: No Sexual Abuse: No Mistreated: No Fear: No Immunizations Up To Date Tetanus Booster (TDap): Less than 5yrs PED Vaccines UTD: Yes Seasonal Allergies Seasonal Allergies: No Past Medical History Surgeries: Yes ( X 1) Section, Gallbladder, Tubal Ligation Respiratory: No Cardiac: No Neurological: No 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 PT WITH HX OF POLYSUBSTANCE ABUSE, INCLUDING IV METH, WELL RX DRUG ABUSE--OPIATES AND BENZODIAZEPINES Physical Exam Vital Signs Vital Signs - First Documented 01/04/20 01/04/20 10:58 14:32 Temp 35.8 Pulse 62 Resp 17 B/P (MAP) 151/91 (111) Pulse Ox 99 O2 Delivery Room Air Capillary Refill : Less Than 3 Seconds Height/Weight/BMI Height: 5'4" Weight: 125lbs. 0oz. 56.001720xt; 22.00 BMI Method:Stated General Appearance: WD/WN, mild distress (secondary to pain) HEENT: PERRL/EOMI, normal ENT inspection, TMs normal, pharynx normal Respiratory: chest non-tender, lungs clear, normal breath sounds Cardiovascular: normal peripheral pulses, regular rate, rhythm, no edema Gastrointestinal: normal bowel sounds, soft; No distended, No guarding, No rebound; tenderness (epigastric) Neurologic/Psychiatric: no motor/sensory deficits, alert, normal mood/affect, oriented x 3 Skin: normal color, warm/dry; No jaundice Progress/Results/Core Measures Results/Orders Lab Results Laboratory Tests Test 01/04/20 11:13 01/04/20 11:16 01/04/20 11:20 Range/Units White Blood Count 10.1 4.3-11.0 10^3/uL Red Blood Count 4.94 3.80-5.11 10^6/uL Hemoglobin 15.1 11.5-16.0 g/dL Hematocrit 45 35-52 % Mean Corpuscular Volume 90 80-99 fL Mean Corpuscular Hemoglobin 31 25-34 pg Mean Corpuscular Hemoglobin Concent 34 32-36 g/dL Red Cell Distribution Width 12.4 10.0-14.5 % Platelet Count 432 H 130-400 10^3/uL Mean Platelet Volume 8.6 L 9.0-12.2 fL Immature Granulocyte % (Auto) 0 % Neutrophils (%) (Auto) 72 42-75 % Lymphocytes (%) (Auto) 25 12-44 % Monocytes (%) (Auto) 3 0-12 % Eosinophils (%) (Auto) 0 0-10 % Basophils (%) (Auto) 1 0-10 % Neutrophils # (Auto) 7.2 1.8-7.8 10^3/uL Lymphocytes # (Auto) 2.5 1.0-4.0 10^3/uL Monocytes # (Auto) 0.3 0.0-1.0 10^3/uL Eosinophils # (Auto) 0.0 0.0-0.3 10^3/uL Basophils # (Auto) 0.1 0.0-0.1 10^3/uL Immature Granulocyte # (Auto) 0.0 0.0-0.1 10^3/uL Sodium Level 139 135-145 MMOL/L Potassium Level 3.6 3.6-5.0 MMOL/L Chloride Level 103 98-107 MMOL/L Carbon Dioxide Level 19 L 21-32 MMOL/L Anion Gap 17 H 5-14 MMOL/L Blood Urea Nitrogen 15 7-18 MG/DL Creatinine 0.72 0.60-1.30 MG/DL Estimat Glomerular Filtration Rate > 60 BUN/Creatinine Ratio 21 Glucose Level 105 70-105 MG/DL Calcium Level 10.0 8.5-10.1 MG/DL Corrected Calcium 8.5-10.1 MG/DL Total Bilirubin 1.4 H 0.1-1.0 MG/DL Aspartate Amino Transf (AST/SGOT) 45 H 5-34 U/L Alanine Aminotransferase (ALT/SGPT) 48 0-55 U/L Alkaline Phosphatase 82 40-136 U/L C-Reactive Protein High Sensitivity < 0.01 0.00-0.50 MG/DL Total Protein 7.7 6.4-8.2 GM/DL Albumin 4.7 H 3.2-4.5 GM/DL Amylase Level 50 25-125 U/L Lipase 12 8-78 U/L Urine Color YELLOW Urine Clarity CLEAR Urine pH 7.5 5-9 Urine Specific [place] 1.020 1.016-1.022 Urine Protein 1+ H NEGATIVE Urine Glucose (UA) NEGATIVE NEGATIVE Urine Ketones 3+ H NEGATIVE Urine Nitrite NEGATIVE NEGATIVE Urine Bilirubin 2+ H NEGATIVE Urine Urobilinogen 2.0 < = 1.0 MG/DL Urine Leukocyte Esterase NEGATIVE NEGATIVE Urine RBC (Auto) NEGATIVE NEGATIVE Urine RBC RARE /HPF Urine WBC 0-2 /HPF Urine Squamous Epithelial Cells 25-50 H /HPF Urine Crystals NONE /LPF Urine Bacteria FEW H /HPF Urine Casts NONE /LPF Urine Mucus MODERATE H /LPF Urine Culture Indicated NO Urine Opiates Screen POSITIVE H NEGATIVE Urine Oxycodone Screen NEGATIVE NEGATIVE Urine Methadone Screen NEGATIVE NEGATIVE Urine Propoxyphene Screen NEGATIVE NEGATIVE Urine Barbiturates Screen NEGATIVE NEGATIVE Ur Tricyclic Antidepressants Screen NEGATIVE NEGATIVE Urine Phencyclidine Screen NEGATIVE NEGATIVE Urine Amphetamines Screen POSITIVE H NEGATIVE Urine Methamphetamines Screen POSITIVE H NEGATIVE Urine Benzodiazepines Screen POSITIVE H NEGATIVE Urine Cocaine Screen NEGATIVE NEGATIVE Urine Cannabinoids Screen POSITIVE H NEGATIVE Urine Test NEGATIVE NEGATIVE My Orders Orders - RUBY SILVA Hcg,Qualitative Urine (01/04/20 11:25) Ondansetron Injection (Zofran Injectio (01/04/20 11:30) Ed Iv/Invasive Line Start (01/04/20 11:29) Ns Iv 1000 Ml (Sodium Chloride 0.9%) (01/04/20 11:29) Fentanyl Injection (Sublimaze Injection (01/04/20 11:30) Amylase (01/04/20 11:31) Lipase (01/04/20 11:31) Ed Iv/Invasive Line Start (01/04/20 12:10) Ns Iv 1000 Ml (Sodium Chloride 0.9%) (01/04/20 12:10) Ketorolac Injection (Toradol Injection) (01/04/20 12:10) Ceftriaxone For Iv Use (Rocephin For I (01/04/20 12:30) Haloperidol Tablet (Haldol Tablet) (01/04/20 13:15) Diphenhydramine Tablet (Benadryl Tablet) (01/04/20 13:15) Fentanyl Injection (Sublimaze Injection (01/04/20 14:30) Medications Given in ED Current Medications Medications Dose Ordered Sig/Dick Route Start Time Stop Time Status Last Admin Dose Admin Ceftriaxone Sodium 1000 mg/ Sterile Water 10 ml @ 200 mls/hr ONCE ONCE IV 01/04/20 12:30 01/04/20 12:32 DC 01/04/20 12:26 200 MLS/HR Diphenhydramine HCl 25 mg ONCE ONCE PO 01/04/20 13:15 01/04/20 13:16 DC 01/04/20 13:57 25 MG Fentanyl Citrate 25 mcg ONCE ONCE IVP 01/04/20 11:30 01/04/20 11:31 DC 01/04/20 11:36 25 MCG Fentanyl Citrate 25 mcg ONCE ONCE IVP 01/04/20 14:30 01/04/20 14:31 DC 01/04/20 14:28 25 MCG Haloperidol 5 mg ONCE ONCE PO 01/04/20 13:15 01/04/20 13:16 DC 01/04/20 13:57 5 MG Ondansetron HCl 4 mg ONCE ONCE IVP 01/04/20 11:30 01/04/20 11:31 DC 01/04/20 11:36 4 MG Vital Signs/I&O 01/04/20 01/04/20 10:58 14:32 Temp 35.8 Pulse 62 85 Resp 17 19 B/P (MAP) 151/91 (111) 127/69 Pulse Ox 99 O2 Delivery Room Air Room Air Blood Pressure Mean: 111 Progress Progress Note : Time: 11:10 Progress Note Patient seen and evaluated, will obtain labs, IV Zofran 4 mg, fentanyl 25 g and normal saline 1 L. 1200 patient reports pain improved for approximately 15 minutes and is now severe. Will give Toradol 30 mg IV and a second liter of IV fluids. Rocephin 1 g IV for UTI. Discussed urine drug screen, patient denies using benzodiazepines or methamphetamine. 1230 patient continues to complain of pain. Discussed UTI and she said this is the pain she gets when they are bad. 1300 2nd liter of NS. Haldol and Benadryl for pain/nausea. 1345 patient reports some improvement in her symptoms. Discharge instructions and return precautions reviewed with her. Departure Impression Primary Impression: Urinary tract infection Qualified Codes: N30.01 - Acute cystitis with hematuria Additional Impressions: Nausea and vomiting Qualified Codes: R11.2 - Nausea with vomiting, unspecified Abdominal wall pain Disposition: HOME, SELF-CARE Condition: Improved Departure-Patient Inst. Decision time for Depature: 13:40 Referrals: NO,LOCAL PHYSICIAN (PCP/Family) Primary Care Physician Patient Instructions: Severe Abdominal Pain, Adult (DC), Urinary Tract Infection, Adult (DC) Add. Discharge Instructions: Increase water intake, 16 ounces every 2 hours while awake. Empty bladder every 2 hours. Drink 1 cup of cranberry juice or eat 1 cup of fresh blueberries daily, Take antibiotics as prescribed. Use Zofran every 6-8 hours for nausea and vomiting. Alternate between Tylenol 650 mg and ibuprofen 600 mg every 4 hours for pain. Establish care with a primary care provider. Return to the emergency department for new, urgent health care needs. All discharge instructions reviewed with patient and/or family. Voiced understanding. Scripts Cephalexin (Cephalexin) 500 Mg Tablet 500 MG PO TID, #15 TAB 0 Refills Prov: RUBY SILVA 01/04/20 Ondansetron (Ondansetron Odt) 4 Mg Tab.rapdis 4 MG PO Q6H PRN for NAUSEA/VOMITING, #12 TAB 0 Refills Prov: RUBY SILVA 01/04/20 RUBY SILVA Jan 04, 2020 11:47
[2020-01-04 11:53] LABS: LIPASE 12 U/L (8-78)
[2020-01-04] MEDS ORDERED: KETOROLAC 30 MG/ML VIAL IVP STA (12:10)
[2020-01-04] MEDS ORDERED: CEPH500T PO (12:28)
[2020-01-04] MEDS ORDERED: ONDA4TAB11 PO (12:28)
[2020-01-04] MEDS ORDERED: cefTRIAXone FOR IV USE 1,000 MG in WATER (STERILE) FOR INJECTION 10 ML IV ONE (12:30)
[2020-01-04] MEDS ORDERED: diphenhydrAMINE 25 MG TAB (BENADRYL) PO ONE (13:15)
[2020-01-04] MEDS ORDERED: HALOPERIDOL 5 MG (HALDOL) TAB PO ONE (13:15)
[2020-01-04 14:32] VITALS: BP 127/69
== END 2020-01-04 14:32 | disposition home or self-care (01) ==
LOC: EDUNIT# 10:40 → ER 10:41
DX: N39.0 Urinary tract infection, site not specified (principal); G89.29 Other chronic pain; M54.9 Dorsalgia, unspecified; F17.210 Nicotine dependence, cigarettes, uncomplicated; Z88.8 Allergy status to other drugs, medicaments and biological substances; Z88.0 Allergy status to penicillin; Z79.52 Long term (current) use of systemic steroids
CPT/HCPCS: 36415; 80053; 80306; 81000; 82150; 83690; 84703; 85025; 86141

== ENCOUNTER 2020-05-07 15:36 | Emergency (ER) | payer SELFPAY ==
[~2020-05-07] VITALS: Ht 162.6 cm; Wt 63.6 kg
[~2020-05-07 15:36] MED LIST changes: +CEPH500T PO; +ONDA4TAB11 PO
--- NOTE | 2020-05-07 15:50 | ED General ---
General Stated Complaint: CHEST SWOLLEN/PAINFUL History of Present Illness Date Seen by Provider: May 07, 2020 Time Seen by Provider: 15:50 Initial Comments 45-year-old female presents with left chest wall pain. She reports that started about 3 days ago. That her anterior chest wall is "swollen" that is tender to palpation, hurts with any physical activity, hurts with deep breath. She denies any known injury or increased activity. She denies any cough, fever, chills, shortness of breath, diaphoresis. Allergies and Home Medications Allergies Coded Allergies: pregabalin (Verified Allergy, Severe, EDEMA, 12/21/11) Penicillins (Verified Allergy, Unknown, 04/29/18) Can take amoxicillin without reaction Home Medications Amoxicillin 500 Mg Tablet, 1,000 MG PO BID Prescribed by: MARISOL COHN on 04/29/18 0249 Cephalexin 500 Mg Tablet, 500 MG PO TID Prescribed by: RUBY SILVA on 01/04/20 1228 Meloxicam, Submicronized 5 Mg Capsule, 5 MG PO DAILY Prescribed by: JUANY LION on 05/07/20 1654 Methylprednisolone 4 Mg Tab.ds.pk, 4 MG PO UD Prescribed by: NATASHA WEEMS on 10/28/18 0044 Ondansetron 4 Mg Tab.rapdis, 4 MG PO Q6H PRN for NAUSEA/VOMITING Prescribed by: RUBY SILVA on 01/04/20 1228 Prednisone 50 Mg Tab, 50 MG PO DAILY Prescribed by: PAULINA MORRISSEY on 07/14/19 1355 Tramadol HCl 50 Mg Tablet, 50 MG PO Q6H PRN for PAIN-MODERATE TO SEVERE Prescribed by: MARISOL COHN on 04/29/18 0249 Patient Home Medication List Home Medication List Reviewed: Yes Review of Systems Review of Systems Constitutional: No chills, No fever EENTM: no symptoms reported Respiratory: No cough, No short of breath Cardiovascular: see HPI, chest pain; No palpitations Gastrointestinal: no symptoms reported Genitourinary: no symptoms reported Musculoskeletal: see HPI Skin: see HPI Psychiatric/Neurological: No Symptoms Reported Hematologic/Lymphatic: No Symptoms Reported Immunological/Allergic: no symptoms reported Past Rhynhut-Aohnkh-Yogzcl Hx Past Med/Social Hx: Reviewed Nursing Past Med/Soc Hx Patient Social History 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; OPIATES, BENZODIAZEPINES, THC Type Used: Cigarettes 2nd Hand Smoke Exposure: No Recent Hopitalizations: No Immunizations Up To Date Tetanus Booster (TDap): Less than 5yrs PED Vaccines UTD: Yes Seasonal Allergies Seasonal Allergies: No Past Medical History Surgeries: Yes ( X 1) Section, Gallbladder, Tubal Ligation Respiratory: No Cardiac: No Neurological: No 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 PT WITH HX OF POLYSUBSTANCE ABUSE, INCLUDING IV METH, WELL RX DRUG ABUSE--OPIATES AND BENZODIAZEPINES Physical Exam Vital Signs Vital Signs - First Documented Capillary Refill : Height, Weight, BMI Height: 5'4" Weight: 125lbs. 0oz. 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 as Tested Skin: Normal Color, Warm/Dry Progress/Results/Core Measures Suspected Sepsis SIRS Temperature: Pulse: Respiratory Rate: Laboratory Tests 05/07/20 16:02: White Blood Count 7.5 Blood Pressure / Mean: Laboratory Tests 05/07/20 16:02: Creatinine 0.75, Platelet Count 319, Total Bilirubin 0.5 Results/Orders Lab Results Laboratory Tests Test 05/07/20 16:02 Range/Units White Blood Count 7.5 4.3-11.0 10^3/uL Red Blood Count 4.31 3.80-5.11 10^6/uL Hemoglobin 13.3 11.5-16.0 g/dL Hematocrit 40 35-52 % Mean Corpuscular Volume 93 80-99 fL Mean Corpuscular Hemoglobin 31 25-34 pg Mean Corpuscular Hemoglobin Concent 33 32-36 g/dL Red Cell Distribution Width 13.0 10.0-14.5 % Platelet Count 319 130-400 10^3/uL Mean Platelet Volume 8.3 L 9.0-12.2 fL Immature Granulocyte % (Auto) 0 % Neutrophils (%) (Auto) 46 42-75 % Lymphocytes (%) (Auto) 46 H 12-44 % Monocytes (%) (Auto) 6 0-12 % Eosinophils (%) (Auto) 1 0-10 % Basophils (%) (Auto) 0 0-10 % Neutrophils # (Auto) 3.5 1.8-7.8 10^3/uL Lymphocytes # (Auto) 3.5 1.0-4.0 10^3/uL Monocytes # (Auto) 0.4 0.0-1.0 10^3/uL Eosinophils # (Auto) 0.1 0.0-0.3 10^3/uL Basophils # (Auto) 0.0 0.0-0.1 10^3/uL Immature Granulocyte # (Auto) 0.0 0.0-0.1 10^3/uL Sodium Level 140 135-145 MMOL/L Potassium Level 4.2 3.6-5.0 MMOL/L Chloride Level 103 98-107 MMOL/L Carbon Dioxide Level 30 21-32 MMOL/L Anion Gap 7 5-14 MMOL/L Blood Urea Nitrogen 7 7-18 MG/DL Creatinine 0.75 0.60-1.30 MG/DL Estimat Glomerular Filtration Rate > 60 BUN/Creatinine Ratio 9 Glucose Level 93 70-105 MG/DL Calcium Level 9.0 8.5-10.1 MG/DL Corrected Calcium 9.1 8.5-10.1 MG/DL Total Bilirubin 0.5 0.1-1.0 MG/DL Aspartate Amino Transf (AST/SGOT) 30 5-34 U/L Alanine Aminotransferase (ALT/SGPT) 32 0-55 U/L Alkaline Phosphatase 113 40-136 U/L Troponin I < 0.028 <0.028 NG/ML C-Reactive Protein High Sensitivity 0.05 0.00-0.50 MG/DL B-Type Natriuretic Peptide 11.1 <100.0 PG/ML Total Protein 6.4 6.4-8.2 GM/DL Albumin 3.9 3.2-4.5 GM/DL My Orders Orders - JUANY LION DO BNP (05/07/20 16:03) Cbc With Automated Diff (05/07/20 16:03) Comprehensive Metabolic Panel (05/07/20 16:03) Hs C Reactive Protein (05/07/20 16:03) Troponin I (05/07/20 16:03) Chest Pa/Lat (2 View) (05/07/20 16:03) Ekg Tracing (05/07/20 16:03) Ketorolac Injection (Toradol Injection) (05/07/20 16:04) Vital Signs/I&O 05/07/20 05/07/20 15:50 15:50 Temp 38.1 Pulse 96 Resp 12 B/P (MAP) 119/72 (88) Pulse Ox 98 O2 Delivery Room Air Room Air Capillary Refill : Progress Note : Time: 16:49 Progress Note Patient with negative labs including a white count negative CRP negative troponin. Symptoms very consistent with pleurisy or myofascial type strain of her chest wall. I will prescribe her anti-inflammatory. Patient stable and discharged ECG Initial ECG Impression Date: May 07, 2020 Initial ECG Impression Time: 16:04 Initial ECG Rate: 94 Initial ECG Rhythm: Normal Sinus Initial ECG Impression: Nonspecific Changes Comment No acute findings Diagnostic Imaging Diagonstic Imaging: Xray Plain Films/CT/US/NM/MRI: chest Comments [facility] [place], [place] NAME: BLUE [facility] REC#: [id number] PT STATUS: REG ER : 1975 PHYSICIAN: JUANY LION DO ADMIT DATE: 05/07/20/ER Signed Date of Exam:05/07/20 CHEST PA/LAT (2 VIEW) Indication: Chest pain PA and lateral chest Heart size and pulmonary vascularity are normal. Lungs are clear. There are no effusions or pneumothoraces. IMPRESSION: Negative chest Dictated by: Dictated on workstation # [id number] Dict: 05/07/20 1639 Trans: 05/07/20 1639 [id number] Interpreted by: ABRAHAM KAMARA MD Electronically signed by: ABRAHAM KAMARA MD 05/07/201638 Departure Impression Primary Impression: Muscle strain of anterior chest wall Disposition: HOME, SELF-CARE Condition: Stable Departure-Patient Inst. Referrals: NO,LOCAL PHYSICIAN (PCP/Family) Primary Care Physician Patient Instructions: Using Cold for Pain, Muscle Strain ED Add. Discharge Instructions: You may use 4% topical lidocaine with menthol as directed on package on your anterior chest wall, Tylenol 1000 mg 3 times a day. Do not use ibuprofen or Aleve with your prescription strength meloxicam. If symptoms have not resolved in 5 to 7 days follow-up with your primary care provider Scripts Meloxicam, Submicronized (Meloxicam) 5 Mg Capsule 5 MG PO DAILY for 10 Days, #10 CAP Prov: JUANY LION DO 05/07/20 Work/School Note: Work Release Form Date Seen in the Emergency Department: May 07, 2020 Return to Work: May 10, 2020 JUANY LION DO May 07, 2020 15:50
[2020-05-07] MEDS ORDERED: KETOROLAC 30 MG/ML VIAL IVP STA (16:04)
[2020-05-07 16:09] LABS: BASOPHILS % (AUTO) 0 % (0-10); EOSINOPHILS # (AUTO) 0.1 10^3/uL (0.0-0.3); EOSINOPHILS % (AUTO) 1 % (0-10); HEMATOCRIT 40 % (35-52); HEMOGLOBIN 13.3 g/dL (11.5-16.0); LYMPHOCYTES # (AUTO) 3.5 10^3/uL (1.0-4.0); LYMPHOCYTES % (AUTO) 46 % (12-44); MEAN CORPUSCULAR HEMOGLOBIN 31 pg (25-34); MEAN CORPUSCULAR HGB CONC 33 g/dL (32-36); MEAN CORPUSCULAR VOLUME 93 fL (80-99); MEAN PLATELET VOLUME 8.3 fL (9.0-12.2); MONOCYTES # (AUTO) 0.4 10^3/uL (0.0-1.0); MONOCYTES % (AUTO) 6 % (0-12); NEUTROPHILS # (AUTO) 3.5 10^3/uL (1.8-7.8); NEUTROPHILS % (AUTO) 46 % (42-75); PLATELET COUNT 319 10^3/uL (130-400); WHITE BLOOD COUNT 7.5 10^3/uL (4.3-11.0)
[2020-05-07 16:23] LABS: ALBUMIN 3.9 GM/DL (3.2-4.5); CHLORIDE 103 MMOL/L (98-107); POTASSIUM 4.2 MMOL/L (3.6-5.0); SODIUM 140 MMOL/L (135-145)
[2020-05-07 16:25] LABS: GLUCOSE 93 MG/DL (70-105); TOTAL PROTEIN 6.4 GM/DL (6.4-8.2)
[2020-05-07 16:27] LABS: BILIRUBIN,TOTAL 0.5 MG/DL (0.1-1.0); CARBON DIOXIDE 30 MMOL/L (21-32)
[2020-05-07 16:29] LABS: ALKALINE PHOSPHATASE 113 U/L (40-136); CREATININE SERUM 0.75 MG/DL (0.60-1.30); GFR ESTIMATED > 60
[2020-05-07 16:30] LABS: BUN/CREATININE RATIO 9
[2020-05-07 16:32] LABS: ALANINE AMINOTRANSFERASE 32 U/L (0-55)
--- NOTE | 2020-05-07 16:41 | Diagnostic Imaging Report ---
Indication: Chest pain PA and lateral chest Heart size and pulmonary vascularity are normal. Lungs are clear. There are no effusions or pneumothoraces. IMPRESSION: Negative chest Dictated by: Dictated on workstation # [id number]
[2020-05-07] MEDS ORDERED: MELO5CAP3 PO (16:54)
[2020-05-07 17:10] VITALS: BP 103/68
== END 2020-05-07 17:10 | disposition home or self-care (01) ==
LOC: EDUNIT# 15:36 → ER 15:40
DX: S29.011A Strain of muscle and tendon of front wall of thorax, initial encounter (principal); Z88.0 Allergy status to penicillin; Z88.8 Allergy status to other drugs, medicaments and biological substances; Z79.52 Long term (current) use of systemic steroids; Y93.B9 Activity, other involving muscle strengthening exercises
CPT/HCPCS: 36415; 71046; 80053; 83880; 84484; 85025; 86141; 93005

== ENCOUNTER 2020-11-12 14:27 | Emergency (ER) | payer SELFPAY ==
[~2020-11-12] VITALS: Ht 162.5 cm; Wt 63.6 kg
[~2020-11-12 14:27] MED LIST changes: +MELO5CAP3 PO; -SULF1TAB35 PO; +SULF1TAB38 PO
[2020-11-12] MEDS ORDERED: KETOROLAC 30 MG/ML VIAL IVP ONE (15:30)
--- NOTE | 2020-11-12 15:34 | ED Abdominal Pain ---
General Chief Complaint: Abdominal/GI Problems Stated Complaint: ABD PAIN;VOMITING Source of Information: Patient Exam Limitations: No Limitations History of Present Illness Date Seen by Provider: Nov 12, 2020 Time Seen by Provider: 15:15 Initial Comments 45yoF with no significant PMH coming in due to abdominal pain and nausea. Pain started last night in her upper abdomen going down to her lower abdomen. Started have nausea and nonblood/nonbilious emesis today x1. Pain she says is intermittent, crampy, and severe. She says this feels like when she has a UTI even though it is in her upper abdomen. Has had her gallbladder out before. No fever, chest pain, SOB, weakness, numbness, cough, diarrhea. Endorses urinary frequency. Took a hydrocodone this morning which helped with the pain. She says fentanyl normally helps. Timing/Duration: 24 Hours Severity/Quality: Severe Location: Generalized Abdomen Radiation: No Radiation Activities at Onset: None Modifying Factors: Improves With Analgesics Associated Symptoms: Nausea/Vomiting Allergies and Home Medications Allergies Coded Allergies: pregabalin (Verified Allergy, Severe, EDEMA, 12/21/11) Penicillins (Verified Allergy, Unknown, 04/29/18) Can take amoxicillin without reaction Home Medications Amoxicillin 500 Mg Tablet, 1,000 MG PO BID Prescribed by: MARISOL COHN on 04/29/18 0249 Cefdinir 300 Mg Capsule, 300 MG PO BID Prescribed by: ANYI JEREZ on 11/12/20 1628 Cephalexin 500 Mg Tablet, 500 MG PO TID Prescribed by: RUBY SILVA on 01/04/20 1228 Meloxicam, Submicronized 5 Mg Capsule, 5 MG PO DAILY Prescribed by: JUANY LION on 05/07/20 1654 Methylprednisolone 4 Mg Tab.ds.pk, 4 MG PO UD Prescribed by: NATASHA WEEMS on 10/28/18 0044 Metronidazole 500 Mg Tablet, 500 MG PO BID Prescribed by: ANYI JEREZ on 11/12/20 1628 Ondansetron 4 Mg Tab.rapdis, 4 MG PO Q6H PRN for NAUSEA/VOMITING Prescribed by: RUBY SILVA on 01/04/20 1228 Prednisone 50 Mg Tab, 50 MG PO DAILY Prescribed by: PAULINA MORRISSEY on 07/14/19 1355 Tramadol HCl 50 Mg Tablet, 50 MG PO Q6H PRN for PAIN-MODERATE TO SEVERE Prescribed by: MARISOL COHN on 04/29/18 0249 Patient Home Medication List Home Medication List Reviewed: Yes Review of Systems Review of Systems Constitutional: No fever EENTM: No Nose Congestion Respiratory: Denies Cough, Denies Shortness of Air Cardiovascular: Denies Chest Pain Gastrointestinal: Abdominal Pain, Nausea, Vomiting Genitourinary: Frequency; Denies Flank Pain Musculoskeletal: No back pain Skin: no symptoms reported Psychiatric/Neurological: No Symptoms Reported Endocrine: No Symptoms Reported Hematologic/Lymphatic: No Symptoms Reported All Other Systems Reviewed Negative Unless Noted: Yes Past Oivzruy-Naxtyx-Iywdlq Hx Patient Social History Tobacco Use?: Yes Substance use?: Yes Substance type: Marijuana Immunizations Up To Date Tetanus Booster (TDap): Less than 5yrs PED Vaccines UTD: Yes Seasonal Allergies Seasonal Allergies: No Past Medical History Surgeries: Yes ( X 1) Section, Gallbladder, Tubal Ligation Respiratory: No Cardiac: No Neurological: No Reproductive Disorders: No 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 PT WITH HX OF POLYSUBSTANCE ABUSE, INCLUDING IV METH, WELL RX DRUG ABUSE--OPIATES AND BENZODIAZEPINES Physical Exam Vital Signs Vital Signs - First Documented 11/12/20 15:15 Temp 35.9 Pulse 61 Resp 18 B/P (MAP) 139/97 (111) Pulse Ox 100 Capillary Refill : Height/Weight/BMI Height: 5'4" Weight: 125lbs. 0oz. [id number]; 24.00 BMI Method:Stated General Appearance: WD/WN, no apparent distress HEENT: pharynx normal Neck: non-tender, full range of motion Respiratory: chest non-tender, lungs clear, normal breath sounds, no respiratory distress Cardiovascular: normal peripheral pulses, regular rate, rhythm, no murmur Gastrointestinal: normal bowel sounds; No distended, No guarding, No rebound; tenderness Rectal: deferred Extremities: normal range of motion, non-tender, normal inspection Back: normal inspection, no CVA tenderness Neurologic/Psychiatric: alert, normal mood/affect Skin: normal color, warm/dry Lymphatic: no adenopathy Progress/Results/Core Measures Results/Orders Lab Results Laboratory Tests Test 11/12/20 13:37 11/12/20 15:30 Range/Units Urine Color YELLOW Urine Clarity CLEAR Urine pH 6.0 5-9 Urine Specific [place] >=1.030 1.016-1.022 Urine Protein 1+ H NEGATIVE Urine Glucose (UA) NEGATIVE NEGATIVE Urine Ketones 3+ H NEGATIVE Urine Nitrite NEGATIVE NEGATIVE Urine Bilirubin NEGATIVE NEGATIVE Urine Urobilinogen 0.2 < = 1.0 MG/DL Urine Leukocyte Esterase NEGATIVE NEGATIVE Urine RBC (Auto) NEGATIVE NEGATIVE Urine RBC NONE /HPF Urine WBC 5-10 H /HPF Urine Squamous Epithelial Cells 10-25 H /HPF Urine Renal Epithelial Cells NONE /HPF Urine Crystals NONE /LPF Urine Bacteria MODERATE H /HPF Urine Casts NONE /LPF Urine Mucus LARGE H /LPF Urine Trichomonas FEW H /HPF Urine Culture Indicated YES White Blood Count 10.7 4.3-11.0 10^3/uL Red Blood Count 5.83 H 3.80-5.11 10^6/uL Hemoglobin 17.8 H 11.5-16.0 g/dL Hematocrit 52 35-52 % Mean Corpuscular Volume 89 80-99 fL Mean Corpuscular Hemoglobin 31 25-34 pg Mean Corpuscular Hemoglobin Concent 34 32-36 g/dL Red Cell Distribution Width 12.3 10.0-14.5 % Platelet Count 388 130-400 10^3/uL Mean Platelet Volume 9.1 9.0-12.2 fL Immature Granulocyte % (Auto) 0 % Neutrophils (%) (Auto) 81 H 42-75 % Lymphocytes (%) (Auto) 17 12-44 % Monocytes (%) (Auto) 1 0-12 % Eosinophils (%) (Auto) 0 0-10 % Basophils (%) (Auto) 0 0-10 % Neutrophils # (Auto) 8.7 H 1.8-7.8 10^3/uL Lymphocytes # (Auto) 1.8 1.0-4.0 10^3/uL Monocytes # (Auto) 0.2 0.0-1.0 10^3/uL Eosinophils # (Auto) 0.0 0.0-0.3 10^3/uL Basophils # (Auto) 0.0 0.0-0.1 10^3/uL Immature Granulocyte # (Auto) 0.0 0.0-0.1 10^3/uL Sodium Level 141 135-145 MMOL/L Potassium Level 4.6 3.6-5.0 MMOL/L Chloride Level 102 98-107 MMOL/L Carbon Dioxide Level 18 L 21-32 MMOL/L Anion Gap 21 H 5-14 MMOL/L Blood Urea Nitrogen 15 7-18 MG/DL Creatinine 0.77 0.60-1.30 MG/DL Estimat Glomerular Filtration Rate 81 BUN/Creatinine Ratio 19 Glucose Level 103 70-105 MG/DL Calcium Level 10.4 H 8.5-10.1 MG/DL Corrected Calcium 8.5-10.1 MG/DL Total Bilirubin 1.5 H 0.1-1.0 MG/DL Aspartate Amino Transf (AST/SGOT) 51 H 5-34 U/L Alanine Aminotransferase (ALT/SGPT) 55 0-55 U/L Alkaline Phosphatase 103 40-136 U/L Total Protein 8.3 H 6.4-8.2 GM/DL Albumin 4.9 H 3.2-4.5 GM/DL Lipase 7 L 8-78 U/L My Orders Orders - ANYI JEREZ MD Comprehensive Metabolic Panel (11/12/20 15:27) Lipase (11/12/20 15:27) Ua Culture If Indicated (11/12/20 15:27) Cbc With Automated Diff (11/12/20 15:27) Ct Abdomen/Pelvis W (11/12/20 15:27) Ketorolac Injection (Toradol Injection) (11/12/20 15:30) Iohexol Injection (Omnipaque 350 Mg/Ml 1 (11/12/20 15:45) Received Contrast (Hold Metformin- Contr (11/12/20 15:45) Ns (Ivpb) (Sodium Chloride 0.9% Ivpb Bag (11/12/20 15:45) Morphine Injection (Morphine Injection (11/12/20 16:00) Urine Culture (11/12/20 13:37) Morphine Injection (Morphine Injection (11/12/20 15:49) Medications Given in ED Current Medications Medications Dose Ordered Sig/Dick Route Start Time Stop Time Status Last Admin Dose Admin Iohexol 100 ml ONCE ONCE IV 11/12/20 15:45 11/12/20 15:46 DC 11/12/20 15:58 100 ML Ketorolac Tromethamine 15 mg ONCE ONCE IVP 11/12/20 15:30 11/12/20 15:31 DC 11/12/20 15:34 15 MG Morphine Sulfate 4 mg ONCE ONCE IVP 11/12/20 16:00 11/12/20 16:01 DC 11/12/20 15:51 4 MG Sodium Chloride 100 ml ONCE ONCE IV 11/12/20 15:45 11/12/20 15:46 DC 11/12/20 15:58 80 ML Vital Signs/I&O 11/12/20 15:15 Temp 35.9 Pulse 61 Resp 18 B/P (MAP) 139/97 (111) Pulse Ox 100 Progress Progress Note : Progress Note 45yoF coming in for abd pain and nausea. ABCs intact and VSS on presentation. Abdominal pain is general without peritoneal signs. Says it feels like a UTI so UA ordered however is tender in RLQ as well so appendicitis cannot be ruled out as well as other pathology. IV placed and given toradol and zofran. CT abd pelv ordered as well as basic labs. Had difficulty getting Ct due to pain so received 4mg IV morphine to complete the procedure. This was a normal study. UA consistent with UTI and trichomonis infection. Given cefdinir and flagyl after reviewing previous culture data from old visit. She has tolerated cephalosporins before. I believe she is stable for discharge. She was sent home with strict return precautions. CT Read Date: Nov 12, 2020 CT Results/Progress Notes [facility] [place], [place] NAME: BLUE CABRERA [facility] REC#: [id number] PT STATUS: REG ER : 1975 PHYSICIAN: ANYI JEREZ MD ADMIT DATE: 11/12/20/ER Draft Date of Exam:11/12/20 CT ABDOMEN/PELVIS W EXAMINATION: CT abdomen and pelvis with intravenous contrast. TECHNIQUE: Multiple contiguous axial images were obtained through the abdomen and pelvis after the uneventful administration of intravenous contrast. All CT scans use one or more of the following dose optimizing techniques: automated exposure control, MA and/or KvP adjustment based on patient size and exam type or iterative reconstruction. HISTORY: Abdominal pain. COMPARISON: CT abdomen and pelvis 07/25/2011. FINDINGS: Lung bases: The lung bases are clear. Solid organs: The liver is normal without focal lesion. The gallbladder is surgically absent. Mild biliary ductal dilatation likely secondary to reservoir effect from prior cholecystectomy. Pancreas is normal. Spleen is normal. Adrenal glands are normal. The kidneys are normal without hydronephrosis. Bowel: The stomach and small bowel are normal without obstruction. The colon and appendix are normal. Peritoneum: There is no intraperitoneal free fluid or free air. No suspicious lymphadenopathy. Vasculature: Calcification of the aorta without aneurysm. Musculoskeletal: No suspicious osseous lesion or compression fracture. Pelvis: The uterus and adnexa are normal. The urinary bladder is normal. IMPRESSION: 1. No acute abnormality in the abdomen or pelvis. Dictated on workstation # [id number] Dict: 11/12/20 1605 Trans: 11/12/20 1608 [facility] [id number] Interpreted by: ZARA KAMARA DO Electronically signed by: Departure Impression Primary Impression: Trichomonal infection Additional Impression: UTI (urinary tract infection) Qualified Codes: N30.00 - Acute cystitis without hematuria Disposition: 01 HOME, SELF-CARE Condition: Stable Departure-Patient Inst. Decision time for Depature: 16:25 Referrals: NO,LOCAL PHYSICIAN (PCP/Family) Primary Care Physician Patient Instructions: Urinary Tract Infection, Adult ED, Trichomoniasis Add. Discharge Instructions: Your have a urinary tract infection and potentially a sexually transmitted infection called trichomonas. This can cause burning, itching, urinary frequency, and abdominal pain. I have sent two antibiotics to the pharmarcy. Do not drink with the metronidazole and it will make you vomit. Please follow up with the doctor of your choosing within the next week to be sure you are improving. If having any worsening of pain or other concerns then please come back to the ER. For pain take ibuprofen and tylenol All discharge instructions reviewed with patient and/or family. Voiced understanding. Scripts Metronidazole (Metronidazole) 500 Mg Tablet 500 MG PO BID, #14 TAB 0 Refills Prov: ANYI JEREZ MD 11/12/20 Cefdinir (Cefdinir) 300 Mg Capsule 300 MG PO BID, #14 CAP 0 Refills Prov: NAYI JEREZ MD 11/12/20 Work/School Note: Work Release Form Date Seen in the Emergency Department: Nov 12, 2020 Return to Work: Nov 13, 2020 Restrictions: No Restrictions ANYI JEREZ MD Nov 12, 2020 15:34
[2020-11-12 15:41] LABS: BASOPHILS % (AUTO) 0 % (0-10); EOSINOPHILS % (AUTO) 0 % (0-10); HEMATOCRIT 52 % (35-52); HEMOGLOBIN 17.8 g/dL (11.5-16.0); LYMPHOCYTES # (AUTO) 1.8 10^3/uL (1.0-4.0); LYMPHOCYTES % (AUTO) 17 % (12-44); MEAN CORPUSCULAR HEMOGLOBIN 31 pg (25-34); MEAN CORPUSCULAR HGB CONC 34 g/dL (32-36); MEAN CORPUSCULAR VOLUME 89 fL (80-99); MEAN PLATELET VOLUME 9.1 fL (9.0-12.2); MONOCYTES # (AUTO) 0.2 10^3/uL (0.0-1.0); MONOCYTES % (AUTO) 1 % (0-12); NEUTROPHILS # (AUTO) 8.7 10^3/uL (1.8-7.8); NEUTROPHILS % (AUTO) 81 % (42-75); PLATELET COUNT 388 10^3/uL (130-400); WHITE BLOOD COUNT 10.7 10^3/uL (4.3-11.0)
[2020-11-12 15:43] LABS: BILIRUBIN,URINE NEGATIVE (NEGATIVE); CLARITY,URINE CLEAR; COLOR,URINE YELLOW; GLUCOSE, URINE (UA) NEGATIVE (NEGATIVE); KETONES,URINE 3+ (NEGATIVE); LEUKOCYTE ESTERASE ,URINE NEGATIVE (NEGATIVE); NITRITE,URINE NEGATIVE (NEGATIVE); PROTEIN,URINE 1+ (NEGATIVE)
[2020-11-12] MEDS ORDERED: HOLD METFORMIN - RECEIVED CONTRAST 20 ML VIAL IV SCH (15:45)
[2020-11-12] MEDS ORDERED: NS 100 ML (IVPB) BAG IV ONE (15:45)
[2020-11-12] MEDS ORDERED: IOHEXOL 350 MG/ML 100 ML (OMNIPAQUE 350) VIAL IV ONE (15:45)
[2020-11-12] MEDS ORDERED: morphine INJ 10 MG/ML 1ML (SYR OR VIAL) ONE (15:49)
[2020-11-12 15:51] LABS: ALBUMIN 4.9 GM/DL (3.2-4.5); CHLORIDE 102 MMOL/L (98-107); POTASSIUM 4.6 MMOL/L (3.6-5.0); SODIUM 141 MMOL/L (135-145)
[2020-11-12 15:52] LABS: CALCIUM 10.4 MG/DL (8.5-10.1)
[2020-11-12 15:52] LABS: BACTERIA,URINE MODERATE /HPF; TRICHOMONAS,URINE FEW /HPF
[2020-11-12 15:53] LABS: GLUCOSE 103 MG/DL (70-105); TOTAL PROTEIN 8.3 GM/DL (6.4-8.2)
[2020-11-12 15:54] LABS: CARBON DIOXIDE 18 MMOL/L (21-32)
[2020-11-12 15:55] LABS: BILIRUBIN,TOTAL 1.5 MG/DL (0.1-1.0)
[2020-11-12 15:57] LABS: ALKALINE PHOSPHATASE 103 U/L (40-136); CREATININE SERUM 0.77 MG/DL (0.60-1.30); GFR ESTIMATED 81
[2020-11-12 15:58] LABS: BUN/CREATININE RATIO 19
[2020-11-12 16:00] LABS: ALANINE AMINOTRANSFERASE 55 U/L (0-55); LIPASE 7 U/L (8-78)
[2020-11-12] MEDS ORDERED: morphine INJ 10 MG/ML 1ML (SYR OR VIAL) IVP ONE (16:00)
--- NOTE | 2020-11-12 16:08 | Diagnostic Imaging Report ---
EXAMINATION: CT abdomen and pelvis with intravenous contrast. TECHNIQUE: Multiple contiguous axial images were obtained through the abdomen and pelvis after the uneventful administration of intravenous contrast. All CT scans use one or more of the following dose optimizing techniques: automated exposure control, MA and/or KvP adjustment based on patient size and exam type or iterative reconstruction. HISTORY: Abdominal pain. COMPARISON: CT abdomen and pelvis 07/25/2011. FINDINGS: Lung bases: The lung bases are clear. Solid organs: The liver is normal without focal lesion. The gallbladder is surgically absent. Mild biliary ductal dilatation likely secondary to reservoir effect from prior cholecystectomy. Pancreas is normal. Spleen is normal. Adrenal glands are normal. The kidneys are normal without hydronephrosis. Bowel: The stomach and small bowel are normal without obstruction. The colon and appendix are normal. Peritoneum: There is no intraperitoneal free fluid or free air. No suspicious lymphadenopathy. Vasculature: Calcification of the aorta without aneurysm. Musculoskeletal: No suspicious osseous lesion or compression fracture. Pelvis: The uterus and adnexa are normal. The urinary bladder is normal. IMPRESSION: 1. No acute abnormality in the abdomen or pelvis. Dictated by: Dictated on workstation # [id number]
[2020-11-12] MEDS ORDERED: CEFD300C3 PO (16:28)
[2020-11-12] MEDS ORDERED: METR-145 PO (16:28)
[2020-11-12 16:43] VITALS: BP 145/76
== END 2020-11-12 16:48 | disposition home or self-care (01) ==
LOC: EDUNIT# 14:27 → ER 14:29
DX: A59.9 Trichomoniasis, unspecified (principal); N39.0 Urinary tract infection, site not specified; Z79.52 Long term (current) use of systemic steroids
CPT/HCPCS: 36415; 74177; 80053; 81000; 83690; 85025; 87088

== ENCOUNTER 2020-11-15 06:35 | Emergency (ER) | payer SELFPAY ==
[~2020-11-15] VITALS: Ht 162 cm; Wt 65.7 kg
[~2020-11-15 06:35] MED LIST changes: +CEFD300C3 PO; +METR-145 PO
--- NOTE | 2020-11-15 07:44 | ED Abdominal Pain ---
General Chief Complaint: Abdominal/GI Problems Stated Complaint: POSS UTI,VOMITING,ABD PAIN Nursing Triage Note: PT PRESENTS TO ED WITH COMPLAINTS OF ABDOMINAL PAIN AND NAUSEA AND VOMITING. PT WAS SEEN IN ED THURSDAY AND DIAGNOSED WITH A UTI. PT REPORTS NO IMPROVEMENT DESPITE ANTIBIOTICS. Source of Information: Patient, Family (daughter) Exam Limitations: No Limitations, Other (BETY JACKSON STUDENT) History of Present Illness Date Seen by Provider: Nov 15, 2020 Time Seen by Provider: 07:20 Initial Comments Pt presents to ED with daughter at bedside with complaints of severe abd pain. She states that she was seen in the ED 3 days ago on 11/12 with similar symptoms and was discharged with antibiotics. She has been taking her medications as prescribed and has been doing ok until yesterday when the pain became severe, and today she presents to ED after being convinced by her daughter. She states she has 10/10 pain to her epigastric area, constant w/o radiation. She has been nauseated with multiple episodes of nonbloody emesis, last bm yesterday with loose consistency, denies dysuria. Denies chest pain, SOB. Timing/Duration: 3-4 Days Severity/Quality: Severe, Aching Location: Epigastric Radiation: No Radiation Activities at Onset: None Modifying Factors: Improves With Analgesics (she has taken 20mg hydrocodone with minimal relief yesterday) Associated Symptoms: No Chest Pain, No Fever/Chills, No Fatigue; [place] sea/Vomiting; No Shortness of Air (BETY JACKSON STUDENT) Initial Comments Patient presents with the last several days having 10 out of 10 epigastric abdominal pain. Sometimes she says it radiates down into her left lower quadrant. No history of diverticulitis. She was here in the ER on the second, 3 days ago and had similar work-up including CT of her abdomen pelvis. She has instructed us that Toradol does nothing for her pain and morphine barely helps but fentanyl is better. She was given a dose of fentanyl and states that her pain is unabated. She is not having any discharge. She has been taking her antibiotics and yesterday her pain got worse which was what brought her in today. She is having nausea with emesis nonbloody x1 today. She had a loose stool this morning or late last night. She denies a history of irritable bowel. She is never had colonoscopy or EGD. She is not having any bloody stools or black tarry stools. She denies any trauma. (MARYANNE SCHROEDER) Allergies and Home Medications Allergies Coded Allergies: pregabalin (Verified Allergy, Severe, EDEMA, 12/21/11) Penicillins (Verified Allergy, Unknown, 04/29/18) Can take amoxicillin without reaction Home Medications Amoxicillin 500 Mg Tablet, 1,000 MG PO BID Prescribed by: MARISOL COHN on 04/29/18 0249 Cefdinir 300 Mg Capsule, 300 MG PO BID Prescribed by: ANYI JEREZ on 11/12/20 1628 Cephalexin 500 Mg Tablet, 500 MG PO TID Prescribed by: RUBY SILVA on 01/04/20 1228 Meloxicam, Submicronized 5 Mg Capsule, 5 MG PO DAILY Prescribed by: JUANY LION on 05/07/20 1654 Methylprednisolone 4 Mg Tab.ds.pk, 4 MG PO UD Prescribed by: NATASHA WEEMS on 10/28/18 0044 Metronidazole 500 Mg Tablet, 500 MG PO BID Prescribed by: ANYI JEREZ on 11/12/20 1628 Ondansetron 4 Mg Tab.rapdis, 4 MG PO Q6H PRN for NAUSEA/VOMITING Prescribed by: RUBY SILVA on 01/04/20 1228 Prednisone 50 Mg Tab, 50 MG PO DAILY Prescribed by: PAULINA MORRISSEY on 07/14/19 1355 Tramadol HCl 50 Mg Tablet, 50 MG PO Q6H PRN for PAIN-MODERATE TO SEVERE Prescribed by: MARISOL COHN on 04/29/18 0249 Patient Home Medication List Home Medication List Reviewed: Yes (BETY JACKSON MED STUDENT) Review of Systems Review of Systems Constitutional: No chills, No fever EENTM: No Blurred Vision, No Eye Pain, No Ear Pain Respiratory: Denies Cough, Denies Shortness of Air Cardiovascular: Denies Chest Pain, Denies Edema Gastrointestinal: Abdominal Pain (epigastric, constant, 10/10), Nausea, Poor Appetite, Vomiting Genitourinary: Denies Burning, Denies Drainage, Denies Hematuria Musculoskeletal: No back pain, No joint pain Skin: No change in color, No change in hair/nails Psychiatric/Neurological: Denies Headache, Denies Numbness, Denies Paresthesia (BETY JACKSON STUDENT) All Other Systems Reviewed Negative Unless Noted: Yes (BETY JACKSON) Past Errfrmi-Fqajju-Hbdvsv Hx Patient Social History Tobacco Use?: Yes Tobacco type used: Cigarettes Smoking Status: Current Everyday Smoker Substance use?: Yes Substance type: Marijuana Alcohol Use?: No Pt feels they are or have been: No (BETY JACKSON) Immunizations Up To Date Tetanus Booster (TDap): Less than 5yrs PED Vaccines UTD: Yes (BETY JACKSON) Seasonal Allergies Seasonal Allergies: No (BETY JACKSON) Past Medical History Surgery/Hospitalization HX: gallbladder Surgeries: Yes ( X 1) Section, Gallbladder, Tubal Ligation Respiratory: No Cardiac: No Neurological: No Reproductive Disorders: No 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 PT WITH HX OF POLYSUBSTANCE ABUSE, INCLUDING IV METH, WELL RX DRUG ABUSE--OPIATES AND BENZODIAZEPINES (BETY JACKSON) Physical Exam Vital Signs Vital Signs - First Documented 11/15/20 07:04 Temp 35.5 Pulse 60 Resp 18 B/P (MAP) 148/90 (109) Pulse Ox 99 (ELDAMARYANNE J) Vital Signs Capillary Refill : Less Than 3 Seconds (BETY JACKSON STUDENT) Height/Weight/BMI Height: 5'4" Weight: 125lbs. 0oz. [id number]; 25.00 BMI Method:Stated General Appearance: WD/WN, moderate distress HEENT: PERRL/EOMI, normal ENT inspection, pharynx normal Neck: non-tender, full range of motion, supple, normal inspection Respiratory: chest non-tender, lungs clear, normal breath sounds, no respiratory distress, no accessory muscle use Cardiovascular: normal peripheral pulses, regular rate, rhythm, no edema, no murmur Peripheral Pulses: 2+ Dorsalis Pedis (R), 2+ Left Dors-Pedis (L), 2+ Radial Pulses (R), 2+ Radial Pulses (L) Gastrointestinal: normal bowel sounds, non tender, soft; No rebound, No tenderness; other (constant epigastric pain, negative Lloyds punch) Rectal: deferred Extremities: normal range of motion, non-tender, normal inspection, no pedal edema, no calf tenderness, normal capillary refill Back: normal inspection, no CVA tenderness, no vertebral tenderness Neurologic/Psychiatric: no motor/sensory deficits, alert, oriented x 3 Skin: normal color, warm/dry Lymphatic: no adenopathy (BETY JACKSON MED STUDENT) Progress/Results/Core Measures Results/Orders Lab Results Laboratory Tests Test 11/15/20 07:17 11/15/20 09:07 Range/Units White Blood Count 11.5 H 4.3-11.0 10^3/uL Red Blood Count 5.29 H 3.80-5.11 10^6/uL Hemoglobin 16.2 H 11.5-16.0 g/dL Hematocrit 46 35-52 % Mean Corpuscular Volume 87 80-99 fL Mean Corpuscular Hemoglobin 31 25-34 pg Mean Corpuscular Hemoglobin Concent 35 32-36 g/dL Red Cell Distribution Width 11.9 10.0-14.5 % Platelet Count 404 H 130-400 10^3/uL Mean Platelet Volume 9.0 9.0-12.2 fL Immature Granulocyte % (Auto) 0 % Neutrophils (%) (Auto) 65 42-75 % Lymphocytes (%) (Auto) 29 12-44 % Monocytes (%) (Auto) 5 0-12 % Eosinophils (%) (Auto) 0 0-10 % Basophils (%) (Auto) 0 0-10 % Neutrophils # (Auto) 7.4 1.8-7.8 10^3/uL Lymphocytes # (Auto) 3.3 1.0-4.0 10^3/uL Monocytes # (Auto) 0.6 0.0-1.0 10^3/uL Eosinophils # (Auto) 0.0 0.0-0.3 10^3/uL Basophils # (Auto) 0.0 0.0-0.1 10^3/uL Immature Granulocyte # (Auto) 0.0 0.0-0.1 10^3/uL Sodium Level 139 135-145 MMOL/L Potassium Level 3.5 L 3.6-5.0 MMOL/L Chloride Level 102 98-107 MMOL/L Carbon Dioxide Level 21 21-32 MMOL/L Anion Gap 16 H 5-14 MMOL/L Blood Urea Nitrogen 16 7-18 MG/DL Creatinine 0.71 0.60-1.30 MG/DL Estimat Glomerular Filtration Rate 89 BUN/Creatinine Ratio 23 Glucose Level 106 H 70-105 MG/DL Calcium Level 9.4 8.5-10.1 MG/DL Corrected Calcium 9.2 8.5-10.1 MG/DL Total Bilirubin 1.1 H 0.1-1.0 MG/DL Aspartate Amino Transf (AST/SGOT) 50 H 5-34 U/L Alanine Aminotransferase (ALT/SGPT) 54 0-55 U/L Alkaline Phosphatase 84 40-136 U/L C-Reactive Protein High Sensitivity 0.01 0.00-0.50 MG/DL Total Protein 7.1 6.4-8.2 GM/DL Albumin 4.3 3.2-4.5 GM/DL Lipase 15 8-78 U/L Urine Color ORANGE Urine Clarity CLOUDY Urine pH 6.0 5-9 Urine Specific [place] >=1.030 1.016-1.022 Urine Protein 1+ H NEGATIVE Urine Glucose (UA) NEGATIVE NEGATIVE Urine Ketones 3+ H NEGATIVE Urine Nitrite POSITIVE H NEGATIVE Urine Bilirubin 2+ H NEGATIVE Urine Urobilinogen 1.0 < = 1.0 MG/DL Urine Leukocyte Esterase TRACE H NEGATIVE Urine RBC (Auto) TRACE-I NEGATIVE Urine RBC RARE /HPF Urine WBC 2-5 /HPF Urine Squamous Epithelial Cells 5-10 /HPF Urine Crystals PRESENT H /LPF Urine Calcium Oxalate Crystals FEW H /LPF Urine Bacteria MODERATE H /HPF Urine Casts NONE /LPF Urine Mucus MODERATE H /LPF Urine Culture Indicated YES Urine Opiates Screen POSITIVE H NEGATIVE Urine Oxycodone Screen POSITIVE H NEGATIVE Urine Methadone Screen NEGATIVE NEGATIVE Urine Propoxyphene Screen NEGATIVE NEGATIVE Urine Barbiturates Screen NEGATIVE NEGATIVE Ur Tricyclic Antidepressants Screen NEGATIVE NEGATIVE Urine Phencyclidine Screen NEGATIVE NEGATIVE Urine Amphetamines Screen POSITIVE H NEGATIVE Urine Methamphetamines Screen POSITIVE H NEGATIVE Urine Benzodiazepines Screen NEGATIVE NEGATIVE Urine Cocaine Screen NEGATIVE NEGATIVE Urine Cannabinoids Screen POSITIVE H NEGATIVE (MARYANNE SCHROEDER) My Orders Orders - MARYANNE SCHROEDER Ondansetron Injection (Zofran Injectio (11/15/20 07:45) Lactated Ringers (Lr 1000 Ml Iv Solution (11/15/20 07:45) Fentanyl Inj (Sublimaze Injection) (11/15/20 07:45) Cbc With Automated Diff (11/15/20 07:39) Comprehensive Metabolic Panel (11/15/20 07:39) Hs C Reactive Protein (11/15/20 07:39) Lipase (11/15/20 07:39) Ua Culture If Indicated (11/15/20 07:39) Drug Screen Stat (Urine) (11/15/20 07:39) Urine Bedside (11/15/20 07:39) Lidocaine 2% Viscous 15 Ml (Xylocaine Vi (11/15/20 08:30) Antacid Suspension (Mylanta Suspension (11/15/20 08:30) Famotidine Injection (Pepcid Injection) (11/15/20 08:24) Hyoscyamine Sl Tablet (Levsin Sl Tablet) (11/15/20 08:30) Ct Abdomen/Pelvis W (11/15/20 09:15) Fentanyl Inj (Sublimaze Injection) (11/15/20 09:15) Iohexol Injection (Omnipaque 350 Mg/Ml 1 (11/15/20 09:45) Received Contrast (Hold Metformin- Contr (11/15/20 09:45) Sodium Chloride Flush (Catheter Flush Sy (11/15/20 09:45) Ns (Ivpb) (Sodium Chloride 0.9% Ivpb Bag (11/15/20 09:45) Urine Culture (11/15/20 09:07) Fentanyl Inj (Sublimaze Injection) (11/15/20 12:45) (MARYANNE SCHROEDER) Medications Given in ED Current Medications Medications Dose Ordered Sig/Dick Route Start Time Stop Time Status Last Admin Dose Admin Al Hydrox/Mg Hydrox/Simethicone 30 ml ONCE ONCE PO 11/15/20 08:30 11/15/20 08:31 DC 11/15/20 08:30 30 ML Fentanyl Citrate 50 mcg ONCE ONCE IVP 11/15/20 07:45 11/15/20 07:46 DC 11/15/20 07:52 50 MCG Fentanyl Citrate 50 mcg ONCE ONCE IVP 11/15/20 09:15 11/15/20 09:17 DC 11/15/20 09:20 50 MCG Hyoscyamine Sulfate 0.125 mg ONCE ONCE SL 11/15/20 08:30 11/15/20 08:31 DC 11/15/20 08:31 0.125 MG Iohexol 100 ml ONCE ONCE IV 11/15/20 09:45 11/15/20 09:46 DC 11/15/20 10:11 85 ML Lactated Ringer's 1,000 ml @ 0 mls/hr Q0M ONCE IV 11/15/20 07:45 11/15/20 07:46 DC 11/15/20 07:52 0 MLS/HR Lidocaine HCl 15 ml ONCE ONCE PO 11/15/20 08:30 11/15/20 08:31 DC 11/15/20 08:30 15 ML Ondansetron HCl 8 mg ONCE ONCE IVP 11/15/20 07:45 11/15/20 07:46 DC 11/15/20 07:52 8 MG Sodium Chloride 10 ml NEEDED PRN IV 11/15/20 09:45 11/15/20 10:11 10 ML Sodium Chloride 100 ml ONCE ONCE IV 11/15/20 09:45 11/15/20 09:46 DC 11/15/20 10:11 80 ML (MARYANNE SCHROEDER) Vital Signs/I&O 11/15/20 07:04 Temp 35.5 Pulse 60 Resp 18 B/P (MAP) 148/90 (109) Pulse Ox 99 (MARYANNE SCHROEDER J) Blood Pressure Mean: 109 Progress Progress Note #1: Time: 08:28 Progress Note With her significant amount of pain or concern for pelvic inflammatory disease elevated but her white count is unremarkable as is her CRP at 0.01. Pain is more on her left upper quadrant and epigastric region making gayathri Arley Vince pain a little less likely. Our next step is to attempt a GI cocktail and some Levsin to see if she is having some spasmodic bowel pain. If this does not help her then we will consider repeating a CT and potentially even an ultrasound of her pelvis to rule out a referred pain from her ovaries or tubes. We did review the imaging from the second and did not find anything concerning to explain her symptoms. I attest that I saw this patient alongside the medical student and agree with his documented history, physical exam and review of systems except as otherwise noted. Progress Note #2: Time: 10:57 Progress Note Patient is feeling a little better and wants to try some ice chips now. Pain is under control. Progress Note #3: Time: 12:42 Progress Note Discussed the patient's pain which did improve from a 10 down to an 8 with a GI cocktail. Suspect she could have ulcer or other intrastomach pathology. Can put her on omeprazole, Carafate and some [place] with follow-up appointment to Dr. Mckinney for outpatient management of her symptoms. Patient is okay with this plan. I do not suspect that her urinary tract infection is causing her pain nor is it out of control. She can continue her outpatient antibiotics. (MARYANNE SCHROEDER) Diagnostic Imaging Diagonstic Imaging: CT Plain Films/CT/US/NM/MRI: abdomen, pelvis Comments NAME: [facility] REC#: [id number] PT STATUS: REG ER : 1975 PHYSICIAN: MARYANNE SCHROEDER MD ADMIT DATE: 11/15/20/ER Signed Date of Exam:11/15/20 CT ABDOMEN/PELVIS W EXAMINATION: CT abdomen and pelvis with intravenous contrast. TECHNIQUE: Multiple contiguous axial images were obtained through the abdomen and pelvis after the uneventful administration of intravenous contrast. All CT scans use one or more of the following dose optimizing techniques: automated exposure control, MA and/or KvP adjustment based on patient size and exam type or iterative reconstruction. HISTORY: intractable RUQ pain radiating to pelvis COMPARISON: CT abdomen and pelvis 11/12/2020 FINDINGS: Lung bases: The lung bases are clear. Solid organs: The liver is normal without focal lesion. The gallbladder is surgically absent. There is no biliary ductal dilation. Pancreas is normal. Spleen is normal. Adrenal glands are normal. The kidneys are normal without hydronephrosis. Bowel: The stomach and small bowel are normal without obstruction. The colon and appendix are normal. Peritoneum: There is no intraperitoneal free fluid or free air. No suspicious lymphadenopathy. Vasculature: Normal without aneurysm. Musculoskeletal: No suspicious osseous lesion or compression fracture. Pelvis: The uterus and adnexa are normal. The urinary bladder is normal. IMPRESSION: 1. No acute abnormality in the abdomen or pelvis. Dictated by: Dictated on workstation # [id number] Dict: 11/15/20 1017 Trans: 11/15/20 1028 [facility] [id number] Interpreted by: ZARA KAMARA DO Electronically signed by: ZARA KAMARA DO 11/15/20 1028 Reviewed: Reviewed by Me (MARYANNE SCHROEDER) Departure Impression Primary Impression: Gastritis Qualified Codes: K29.00 - Acute gastritis without bleeding Additional Impression: UTI (urinary tract infection) Qualified Codes: N30.00 - Acute cystitis without hematuria Disposition: HOME, SELF-CARE Condition: Stable Departure-Patient Inst. Decision time for Depature: 12:43 (MARYANNE SCHROEDER) Referrals: VERONICA MCKINNEY,LOCAL PHYSICIAN (PCP) Primary Care Physician Patient Instructions: Gastritis, Urinary Tract Infection, Adult ED Add. Discharge Instructions: Drink plenty of fluids to help clear the urinary tract infection. Zofran 1 or 2 tablets every 6 hours as necessary to keep your nausea under control. Omeprazole 20 mg twice a day for the next month. Carafate half an hour before meals and bedtime for the next [address] Mckinney and request follow-up appointment for management of your suspected gastritis. For breakthrough pain you can use hydrocodone 1 tablet every 6 hours as necessary. Avoid NSAIDs such as ibuprofen, Aleve, naproxen etc. as this may worsen your ability to heal ulcers or gastritis in your stomach. All discharge instructions reviewed with patient and/or family. Voiced understanding. Scripts Omeprazole (Omeprazole) 20 Mg Capsule.dr 20 MG PO BID for 30 Days, #60 CAP 0 Refills Prov: MARYANNE SCHROEDER 11/15/20 Sucralfate (Carafate) 1 Gm Tablet 1 GM PO QIDACHS for 14 Days, #56 TAB 0 Refills Prov: MARYANNE SCHROEDER 11/15/20 Ondansetron HCl (Ondansetron HCl) 4 Mg Tablet 4-8 MG PO Q6H PRN for NAUSEA-1ST LINE, #20 TAB 0 Refills Prov: MARYANNE SCHROEDER 11/15/20 Hydrocodone/Acetaminophen (Hydrocodone-Acetamin 7.5-325) 1 Each Tablet 1 EACH PO Q6H PRN for PAIN-BREAKTHROUGH, #20 TAB 0 Refills Prov: MARYANNE SCHROEDER 11/15/20 Copy Copies To 1: VERONICA MCKINNEY JOHNNY MED STUDENT Nov 15, 2020 07:44 MARYANNE SCHROEDER Nov 15, 2020 08:30
[2020-11-15] MEDS ORDERED: LACTATED RINGERS 1,000 ML IV ONE (07:45)
[2020-11-15] MEDS ORDERED: fentaNYL INJ 100 MCG/2 ML AMP IVP ONE ×3 (07:45→12:45)
[2020-11-15] MEDS ORDERED: ONDANSETRON 4 MG/2 ML (SDV) Z0FRAN IVP ONE (07:45)
[2020-11-15 07:48] LABS: BASOPHILS % (AUTO) 0 % (0-10); EOSINOPHILS % (AUTO) 0 % (0-10); HEMATOCRIT 46 % (35-52); HEMOGLOBIN 16.2 g/dL (11.5-16.0); LYMPHOCYTES # (AUTO) 3.3 10^3/uL (1.0-4.0); LYMPHOCYTES % (AUTO) 29 % (12-44); MEAN CORPUSCULAR HEMOGLOBIN 31 pg (25-34); MEAN CORPUSCULAR HGB CONC 35 g/dL (32-36); MEAN CORPUSCULAR VOLUME 87 fL (80-99); MONOCYTES # (AUTO) 0.6 10^3/uL (0.0-1.0); MONOCYTES % (AUTO) 5 % (0-12); NEUTROPHILS # (AUTO) 7.4 10^3/uL (1.8-7.8); NEUTROPHILS % (AUTO) 65 % (42-75); PLATELET COUNT 404 10^3/uL (130-400); WHITE BLOOD COUNT 11.5 10^3/uL (4.3-11.0)
[2020-11-15 07:52] LABS: ALBUMIN 4.3 GM/DL (3.2-4.5); POTASSIUM 3.5 MMOL/L (3.6-5.0)
[2020-11-15 07:53] LABS: CALCIUM 9.4 MG/DL (8.5-10.1)
[2020-11-15 07:55] LABS: TOTAL PROTEIN 7.1 GM/DL (6.4-8.2)
[2020-11-15 07:56] LABS: BILIRUBIN,TOTAL 1.1 MG/DL (0.1-1.0)
[2020-11-15 07:58] LABS: CREATININE SERUM 0.71 MG/DL (0.60-1.30)
[2020-11-15] MEDS ORDERED: FAMOTIDINE 20MG/2ML IV (PEPCID) IV STA (08:24)
[2020-11-15] MEDS ORDERED: LIDOCAINE 2% VISCOUS 15 ML UDC PO ONE (08:30)
[2020-11-15] MEDS ORDERED: HYOSCYAMINE 0.125 MG (LEVSIN) TAB SL ONE (08:30)
[2020-11-15] MEDS ORDERED: ANTACID SUSP 30 ML UDC (MYLANTA) PO ONE (08:30)
[2020-11-15 09:29] LABS: CLARITY,URINE CLOUDY; COLOR,URINE ORANGE; GLUCOSE, URINE (UA) NEGATIVE (NEGATIVE); KETONES,URINE 3+ (NEGATIVE); LEUKOCYTE ESTERASE ,URINE TRACE (NEGATIVE); NITRITE,URINE POSITIVE (NEGATIVE); PROTEIN,URINE 1+ (NEGATIVE)
[2020-11-15] MEDS ORDERED: HOLD METFORMIN - RECEIVED CONTRAST 20 ML VIAL IV SCH (09:45)
[2020-11-15] MEDS ORDERED: NS 100 ML (IVPB) BAG IV ONE (09:45)
[2020-11-15] MEDS ORDERED: IOHEXOL 350 MG/ML 100 ML (OMNIPAQUE 350) VIAL IV ONE (09:45)
[2020-11-15] MEDS ORDERED: CATHETER FLUSH 10 ML SYR IV PRN (09:45)
[2020-11-15 09:46] LABS: AMPHETAMINE SCREEN, URINE POSITIVE (NEGATIVE); BARBITURATE SCREEN URINE NEGATIVE (NEGATIVE); BENZODIAZEPINES SCREEN URINE NEGATIVE (NEGATIVE); CANNABINOID SCREEN, URINE POSITIVE (NEGATIVE); COCAINE SCREEN URINE NEGATIVE (NEGATIVE); METHADONE STAT NEGATIVE (NEGATIVE); METHAMPHETAMINE SCREEN URINE S POSITIVE (NEGATIVE); OPIATE SCREEN URINE POSITIVE (NEGATIVE); OXYCODONE STAT POSITIVE (NEGATIVE); PROPOXYPHENE STAT NEGATIVE (NEGATIVE); TRICYCLIC ANTIDEPRESSANTS SCRE NEGATIVE (NEGATIVE)
[2020-11-15 09:59] LABS: BACTERIA,URINE MODERATE /HPF; BILIRUBIN,URINE 2+ (NEGATIVE); RBC,URINE RARE /HPF
[2020-11-15 10:00] LABS: CALCIUM OXALATE CRYSTALS,UR FEW /LPF
--- NOTE | 2020-11-15 10:22 | Diagnostic Imaging Report ---
EXAMINATION: CT abdomen and pelvis with intravenous contrast. TECHNIQUE: Multiple contiguous axial images were obtained through the abdomen and pelvis after the uneventful administration of intravenous contrast. All CT scans use one or more of the following dose optimizing techniques: automated exposure control, MA and/or KvP adjustment based on patient size and exam type or iterative reconstruction. HISTORY: intractable RUQ pain radiating to pelvis COMPARISON: CT abdomen and pelvis 11/12/2020 FINDINGS: Lung bases: The lung bases are clear. Solid organs: The liver is normal without focal lesion. The gallbladder is surgically absent. There is no biliary ductal dilation. Pancreas is normal. Spleen is normal. Adrenal glands are normal. The kidneys are normal without hydronephrosis. Bowel: The stomach and small bowel are normal without obstruction. The colon and appendix are normal. Peritoneum: There is no intraperitoneal free fluid or free air. No suspicious lymphadenopathy. Vasculature: Normal without aneurysm. Musculoskeletal: No suspicious osseous lesion or compression fracture. Pelvis: The uterus and adnexa are normal. The urinary bladder is normal. IMPRESSION: 1. No acute abnormality in the abdomen or pelvis. Dictated by: Dictated on workstation # [id number]
[2020-11-15] MEDS ORDERED: HYDR-3817 PO (12:50)
[2020-11-15] MEDS ORDERED: OMEP20CA18 PO (12:50)
[2020-11-15] MEDS ORDERED: SUCR1TAB36 PO (12:50)
[2020-11-15] MEDS ORDERED: ONDA-105 PO (12:50)
[2020-11-15 13:03] VITALS: BP 142/87
== END 2020-11-15 13:02 | disposition home or self-care (01) ==
LOC: EDUNIT# 06:35 → ER 06:38
DX: K29.70 Gastritis, unspecified, without bleeding (principal); N39.0 Urinary tract infection, site not specified; F17.210 Nicotine dependence, cigarettes, uncomplicated; Z79.52 Long term (current) use of systemic steroids
CPT/HCPCS: 36415; 74177; 80053; 80306; 81000; 83690; 85025; 86141; 87088

== ENCOUNTER 2020-12-05 11:51 | Emergency (ER) | payer SELFPAY ==
[~2020-12-05 11:51] MED LIST changes: +HYDR-3817 PO; +OMEP20CA18 PO; +ONDA-105 PO; +SUCR1TAB36 PO
== END 2020-12-05 12:11 | disposition left against medical advice (07) ==
LOC: EDUNIT# 11:51 → ER 11:52
DX: R43.9 Unspecified disturbances of smell and taste (principal); Z20.822 Contact with and (suspected) exposure to COVID-19

== ENCOUNTER 2021-04-09 03:53 | Emergency (ER) | payer SELFPAY ==
[~2021-04-09] VITALS: Ht 162 cm; Wt 67.0 kg
[2021-04-09 03:58] VITALS: BP 149/81
[2021-04-09] MEDS ORDERED: LACTATED RINGERS 1,000 ML IV STA (04:05)
[2021-04-09] MEDS ORDERED: FAMOTIDINE 20MG/2ML IV (PEPCID) IV STA (04:05)
--- NOTE | 2021-04-09 04:10 | ED Abdominal Pain ---
General Chief Complaint: Abdominal/GI Problems Stated Complaint: ABDOMINAL PAIN Source of Information: Patient Exam Limitations: No Limitations History of Present Illness Date Seen by Provider: Apr 09, 2021 Time Seen by Provider: 03:54 Initial Comments Patient to the ER by private conveyance from home with chief complaint of abdominal pain. She states she thinks she has a UTI. She is not having dysuria, urinary frequency, hematuria, discharge, dyspareunia, diarrhea, constipation, nausea or vomiting. She has had her gallbladder out, appendix and a in the past. She also had her tubes tied during a . She has not had a period for the past 3 years. She says she has felt this way in the past when she had a urinary tract infection. She took some Tylenol without relief earlier today. No fevers or chills. Pain started a couple hours ago. The patient states her pain is worse when she lays flat. Allergies and Home Medications Allergies Coded Allergies: pregabalin (Verified Allergy, Severe, EDEMA, 12/21/11) Penicillins (Verified Allergy, Unknown, 04/29/18) Can take amoxicillin without reaction Patient Home Medication List Home Medication List Reviewed: Yes No Active Prescriptions or Reported Meds Review of Systems Review of Systems Constitutional: No chills, No fever EENTM: No Blurred Vision, No Double Vision Respiratory: Denies Cough, Denies Orthopnea Cardiovascular: Denies Chest Pain, Denies Lightheadedness Gastrointestinal: See HPI, Abdominal Pain; Denies Constipated, Denies Diarrhea, Denies Nausea Genitourinary: Denies Burning, Denies Discharge Musculoskeletal: No back pain, No joint pain Skin: No pruritus, No rash All Other Systems Reviewed Negative Unless Noted: Yes Past Cscyotm-[id number] Hx Patient Social History Tobacco Use?: Yes Substance use?: Yes Substance type: Marijuana Alcohol Use?: No Immunizations Up To Date Tetanus Booster (TDap): Less than 5yrs PED Vaccines UTD: Yes Seasonal Allergies Seasonal Allergies: No Past Medical History Surgery/Hospitalization HX: gallbladder Surgeries: Yes ( X 1) Section, Gallbladder, Tubal Ligation Respiratory: No Cardiac: No Neurological: No Reproductive Disorders: No [employer] History: Tubal Ligation Genitourinary: Yes Bladder Infection Gastrointestinal: Yes (HEPATITIS C-NO TREATMENT) Hepatitis Musculoskeletal: Yes (CHRONIC NECK AND BACK PAIN --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 PT WITH HX OF POLYSUBSTANCE ABUSE, INCLUDING IV METH, WELL RX DRUG ABUSE--OPIATES AND BENZODIAZEPINES Physical Exam Vital Signs Vital Signs - First Documented 04/09/21 03:58 Temp 36.0 Pulse 74 Resp 20 B/P (MAP) 149/81 (103) Pulse Ox 99 O2 Delivery Room Air Capillary Refill : Height/Weight/BMI Height: 5'4" Weight: 125lbs. 0oz. [id number]; 25.00 BMI Method:Stated General Appearance: WD/WN, mild distress HEENT: PERRL/EOMI, pharynx normal Neck: full range of motion, supple, normal inspection Respiratory: no respiratory distress, no accessory muscle use Cardiovascular: normal peripheral pulses, regular rate, rhythm (65 hr) Peripheral Pulses: 2+ Radial Pulses (R), 2+ Radial Pulses (L) Gastrointestinal: normal bowel sounds (Quiescent), soft, tenderness (Epigastric region), other (Negative for tenderness in her suprapubic region.) Extremities: normal range of motion, normal capillary refill Neurologic/Psychiatric: alert, normal mood/affect, oriented x 3 Progress/Results/Core Measures Results/Orders Lab Results Laboratory Tests Test 04/09/21 04:00 04/09/21 04:18 Range/Units Urine Color YELLOW Urine Clarity CLEAR Urine pH 7.0 5-9 Urine Specific [place] 1.020 1.016-1.022 Urine Protein NEGATIVE NEGATIVE Urine Glucose (UA) NEGATIVE NEGATIVE Urine Ketones 2+ H NEGATIVE Urine Nitrite NEGATIVE NEGATIVE Urine Bilirubin NEGATIVE NEGATIVE Urine Urobilinogen 1.0 < = 1.0 MG/DL Urine Leukocyte Esterase NEGATIVE NEGATIVE Urine RBC (Auto) NEGATIVE NEGATIVE Urine RBC NONE /HPF Urine WBC NONE /HPF Urine Squamous Epithelial Cells 2-5 /HPF Urine Crystals NONE /LPF Urine Bacteria NEGATIVE /HPF Urine Casts NONE /LPF Urine Mucus LARGE H /LPF Urine Culture Indicated NO White Blood Count 9.1 4.3-11.0 10^3/uL Red Blood Count 5.05 3.80-5.11 10^6/uL Hemoglobin 15.8 11.5-16.0 g/dL Hematocrit 46 35-52 % Mean Corpuscular Volume 91 80-99 fL Mean Corpuscular Hemoglobin 31 25-34 pg Mean Corpuscular Hemoglobin Concent 35 32-36 g/dL Red Cell Distribution Width 12.8 10.0-14.5 % Platelet Count 336 130-400 10^3/uL Mean Platelet Volume 8.9 L 9.0-12.2 fL Immature Granulocyte % (Auto) 0 % Neutrophils (%) (Auto) 77 H 42-75 % Lymphocytes (%) (Auto) 20 12-44 % Monocytes (%) (Auto) 2 0-12 % Eosinophils (%) (Auto) 0 0-10 % Basophils (%) (Auto) 0 0-10 % Neutrophils # (Auto) 7.0 1.8-7.8 10^3/uL Lymphocytes # (Auto) 1.8 1.0-4.0 10^3/uL Monocytes # (Auto) 0.2 0.0-1.0 10^3/uL Eosinophils # (Auto) 0.0 0.0-0.3 10^3/uL Basophils # (Auto) 0.0 0.0-0.1 10^3/uL Immature Granulocyte # (Auto) 0.0 0.0-0.1 10^3/uL Sodium Level 140 135-145 MMOL/L Potassium Level 3.8 3.6-5.0 MMOL/L Chloride Level 105 98-107 MMOL/L Carbon Dioxide Level 22 21-32 MMOL/L Anion Gap 13 5-14 MMOL/L Blood Urea Nitrogen 16 7-18 MG/DL Creatinine 0.66 0.60-1.30 MG/DL Estimat Glomerular Filtration Rate 97 BUN/Creatinine Ratio 24 Glucose Level 134 H 70-105 MG/DL Calcium Level 9.3 8.5-10.1 MG/DL Corrected Calcium 9.1 8.5-10.1 MG/DL Total Bilirubin 0.8 0.1-1.0 MG/DL Aspartate Amino Transf (AST/SGOT) 28 5-34 U/L Alanine Aminotransferase (ALT/SGPT) 36 0-55 U/L Alkaline Phosphatase 87 40-136 U/L C-Reactive Protein High Sensitivity 0.01 0.00-0.50 MG/DL Total Protein 7.0 6.4-8.2 GM/DL Albumin 4.3 3.2-4.5 GM/DL Lipase 20 8-78 U/L My Orders Orders - MARYANNE SCHROEDER Ua Culture If Indicated (04/09/21 03:58) Urine Bedside (04/09/21 03:58) Lidocaine 2% Viscous 15 Ml (Xylocaine Vi (04/09/21 04:15) Antacid Suspension (Mylanta Suspension (04/09/21 04:15) Lactated Ringers (Lr 1000 Ml Iv Solution (04/09/21 04:05) Famotidine Injection (Pepcid Injection) (04/09/21 04:05) Ed Iv/Invasive Line Start (04/09/21 04:05) Cbc With Automated Diff (04/09/21 04:05) Comprehensive Metabolic Panel (04/09/21 04:05) Hs C Reactive Protein (04/09/21 04:05) Lipase (04/09/21 04:05) Ketorolac Injection (Toradol Injection) (04/09/21 05:00) Ct Abdomen/Pelvis W (04/09/21 04:59) Medications Given in ED Current Medications Medications Dose Ordered Sig/Dick Route Start Time Stop Time Status Last Admin Dose Admin Al Hydrox/Mg Hydrox/Simethicone 30 ml ONCE ONCE PO 04/09/21 04:15 04/09/21 04:16 DC 04/09/21 04:20 30 ML Ketorolac Tromethamine 30 mg ONCE ONCE IVP 04/09/21 05:00 04/09/21 05:01 DC 04/09/21 05:04 30 MG Lidocaine HCl 15 ml ONCE ONCE PO 04/09/21 04:15 04/09/21 04:16 DC 04/09/21 04:20 15 ML Vital Signs/I&O 04/09/21 03:58 Temp 36.0 Pulse 74 Resp 20 B/P (MAP) 149/81 (103) Pulse Ox 99 O2 Delivery Room Air Progress Progress Note #1: Time: 04:09 Progress Note The patient states she thinks she has a UTI so urinalysis will be collected. She does not really endorse any urinary tract symptoms. She points to her epigastric region when she states this is where it hurts and is tender in that area. Gastritis is possible. We will give her a GI cocktail and check some basic labs including a lipase looking for pancreatitis. We will initiate a liter of fluids in case imaging is indicated. If the GI cocktail does not help then we will trial NSAIDs. Progress Note #2: Time: 05:03 Progress Note Patient still having significant pain. She states she did not receive any benefit from the GI cocktail. Toradol was ordered and a CT scan of her abdomen and pelvis with IV contrast will be obtained. Lab work is unremarkable. Progress Note #3: Time: 05:31 Progress Note After receiving the Toradol the patient stated she no longer wanted to wait around to do a CT scan and wanted to go home. Explained to her that we could miss something potentially dangerous but with her labs and vital signs both being normal and her pain improving with Toradol she can follow-up outpatient with her primary care doctor. Return precautions were discussed. Diagnostic Imaging Diagonstic Imaging: CT Plain Films/CT/US/NM/MRI: abdomen, pelvis Reviewed: Reviewed [place] Study, Reviewed by Me Departure Impression Primary Impression: Epigastric abdominal pain Disposition: AGAINST MEDICAL ADVICE Condition: Against Medical Advice Departure-Patient Inst. Decision time for Depature: 05:17 Referrals: NO,LOCAL PHYSICIAN (PCP/Family) Primary Care Physician Patient Instructions: Abdominal Pain, Adult ED Add. Discharge Instructions: Establish care with a primary care doctor in follow-up. Return to the ER if your symptoms significantly worsen. Tylenol and Motrin as necessary for pain. All discharge instructions reviewed with patient and/or family. Voiced understanding. Scripts No Active Prescriptions or Reported Meds MARYANNE SCHROEDER Apr 09, 2021 04:10
[2021-04-09] MEDS ORDERED: ANTACID SUSP 30 ML UDC (MYLANTA) PO ONE (04:15)
[2021-04-09] MEDS ORDERED: LIDOCAINE 2% VISCOUS 15 ML UDC PO ONE (04:15)
[2021-04-09 04:21] LABS: BILIRUBIN,URINE NEGATIVE (NEGATIVE); CLARITY,URINE CLEAR; COLOR,URINE YELLOW; GLUCOSE, URINE (UA) NEGATIVE (NEGATIVE); KETONES,URINE 2+ (NEGATIVE); LEUKOCYTE ESTERASE ,URINE NEGATIVE (NEGATIVE); NITRITE,URINE NEGATIVE (NEGATIVE); PROTEIN,URINE NEGATIVE (NEGATIVE)
[2021-04-09 04:29] LABS: BASOPHILS % (AUTO) 0 % (0-10); EOSINOPHILS % (AUTO) 0 % (0-10); HEMATOCRIT 46 % (35-52); HEMOGLOBIN 15.8 g/dL (11.5-16.0); LYMPHOCYTES # (AUTO) 1.8 10^3/uL (1.0-4.0); LYMPHOCYTES % (AUTO) 20 % (12-44); MEAN CORPUSCULAR HEMOGLOBIN 31 pg (25-34); MEAN CORPUSCULAR HGB CONC 35 g/dL (32-36); MEAN CORPUSCULAR VOLUME 91 fL (80-99); MEAN PLATELET VOLUME 8.9 fL (9.0-12.2); MONOCYTES # (AUTO) 0.2 10^3/uL (0.0-1.0); MONOCYTES % (AUTO) 2 % (0-12); NEUTROPHILS % (AUTO) 77 % (42-75); PLATELET COUNT 336 10^3/uL (130-400); WHITE BLOOD COUNT 9.1 10^3/uL (4.3-11.0)
[2021-04-09 04:29] LABS: BACTERIA,URINE NEGATIVE /HPF
[2021-04-09 04:38] LABS: ALBUMIN 4.3 GM/DL (3.2-4.5); POTASSIUM 3.8 MMOL/L (3.6-5.0)
[2021-04-09 04:39] LABS: CALCIUM 9.3 MG/DL (8.5-10.1)
[2021-04-09 04:43] LABS: BILIRUBIN,TOTAL 0.8 MG/DL (0.1-1.0)
[2021-04-09 04:44] LABS: CREATININE SERUM 0.66 MG/DL (0.60-1.30)
[2021-04-09] MEDS ORDERED: KETOROLAC 30 MG/ML VIAL IVP ONE (05:00)
== END 2021-04-09 05:19 | disposition left against medical advice (07) ==
LOC: EDUNIT# 03:53 → ER 03:55
DX: R10.13 Epigastric pain (principal); Z72.0 Tobacco use
CPT/HCPCS: 36415; 80053; 81000; 83690; 84703; 85025; 86141; 96361; 96374; 96375